=== PATIENT | female | born 1970 | race Caucasian/White ===

== ENCOUNTER → 2020-08-17 17:47 | Outpatient (BNVA) | payer OTHER, SELFPAY | PROVIDERS: Family Provider Family Medicine; PCP Family Medicine; Visit Provider Emergency Medicine | DX: Z20.828 Contact with and (suspected) exposure to other viral communicable diseases (principal); R68.89 Other general symptoms and signs | CPT/HCPCS: 87635 ==

== ENCOUNTER → 2020-10-11 13:44 | Outpatient (BNVA) | payer MEDICAID, SELFPAY | PROVIDERS: Family Provider Family Medicine; PCP Family Medicine; Visit Provider Nurse Practitioner Family | DX: N39.46 Mixed incontinence (principal) | CPT/HCPCS: 81003; 87077; 87086; 87184 ==

== ENCOUNTER → 2020-11-01 14:55 | Outpatient (BNVA) | payer MEDICAID, SELFPAY | PROVIDERS: Family Provider Family Medicine; PCP Family Medicine; Visit Provider Nurse Practitioner Family | DX: N39.46 Mixed incontinence (principal); R82.71 Bacteriuria; N30.90 Cystitis, unspecified without hematuria | CPT/HCPCS: 81003 ==

== ENCOUNTER 2020-11-05 13:47 | Outpatient (CLI) | payer MEDICAID, SELFPAY ==
--- NOTE | 2020-11-05 13:55 | XR_ITS ---
WS: [id number] RIGHT SHOULDER: 3 VIEW(S) TECHNIQUE: Internal and external rotation with Y view. HISTORY: INJURY OF RIGHT SHOULDER, INITIAL ENCOUNTER COMPARISON: None available. No fracture or dislocation or soft tissue abnormality. Glenohumeral and AC joints are unremarkable. XR/XR shoulder RT min 2V* [id number] IMPRESSION: Normal RIGHT shoulder.
== END 2020-11-05 13:48 | disposition home or self-care (01) ==
LOC: RAD 13:50
PROVIDERS: PCP Family Medicine; Visit Provider Registered Nurse
DX: S49.91XA Unspecified injury of right shoulder and upper arm, initial encounter (principal); X58.XXXA Exposure to other specified factors, initial encounter
CPT/HCPCS: 73030

== ENCOUNTER → 2020-11-29 13:39 | Outpatient (BNVA) | payer MEDICAID, SELFPAY | PROVIDERS: PCP Family Medicine; Visit Provider Nurse Practitioner Family | DX: N30.90 Cystitis, unspecified without hematuria (principal); N39.46 Mixed incontinence | CPT/HCPCS: 81003 ==

== ENCOUNTER → 2021-01-16 13:53 | Outpatient (BNVA) | payer MEDICAID, SELFPAY | PROVIDERS: PCP Family Medicine; Visit Provider Urology | DX: N30.90 Cystitis, unspecified without hematuria (principal); N39.46 Mixed incontinence | CPT/HCPCS: 81003 ==

== ENCOUNTER → 2021-01-18 18:42 | Outpatient (BNVA) | payer MEDICAID, SELFPAY | PROVIDERS: PCP Family Medicine; Visit Provider Nurse Practitioner | DX: N89.8 Other specified noninflammatory disorders of vagina (principal); Z68.25 Body mass index [BMI] 25.0-25.9, adult; F17.290 Nicotine dependence, other tobacco product, uncomplicated | CPT/HCPCS: 87070; 87086; 87106; 87205; 87491; 87591; 87661 ==

== ENCOUNTER → 2021-05-14 15:08 | Outpatient (BNVA) | payer MEDICAID, SELFPAY | PROVIDERS: PCP Family Medicine; Visit Provider Nurse Practitioner | DX: N39.0 Urinary tract infection, site not specified (principal) | CPT/HCPCS: 81000 ==

== ENCOUNTER → 2021-06-10 17:23 | Outpatient (BNVA) | payer MEDICAID, SELFPAY | PROVIDERS: PCP Family Medicine | DX: R39.9 Unspecified symptoms and signs involving the genitourinary system (principal); R30.0 Dysuria | CPT/HCPCS: 81000 ==

== ENCOUNTER → 2021-07-26 15:29 | Outpatient (BNVA) | payer MEDICAID, SELFPAY | PROVIDERS: PCP Family Medicine; Visit Provider Obstetrics & Gynecology | DX: Z12.4 Encounter for screening for malignant neoplasm of cervix (principal); E03.9 Hypothyroidism, unspecified; N95.1 Menopausal and female climacteric states | CPT/HCPCS: 87624 ==

== ENCOUNTER → 2021-07-31 10:03 | Outpatient (BNVA) | payer MEDICAID, SELFPAY | PROVIDERS: PCP Family Medicine; Referring Provider Obstetrics & Gynecology; Visit Provider Internal Medicine | DX: R79.89 Other specified abnormal findings of blood chemistry (principal); E03.9 Hypothyroidism, unspecified; E05.90 Thyrotoxicosis, unspecified without thyrotoxic crisis or storm; F17.290 Nicotine dependence, other tobacco product, uncomplicated | CPT/HCPCS: 99204 ==

== ENCOUNTER 2021-08-07 15:56 | Outpatient (CLI) | payer MEDICAID, SELFPAY ==
[2021-08-07 16:50] LABS: Free T4 Free Thyroxine 1.64 ng/dL (0.82-1.77); Thyroid Stimulating Hormone 1.08 uIU/mL (0.27-4.20)
[2021-08-08 14:38] LABS: Thyroglobulin AB 4 IU/mL (< or = 1)
[2021-08-08 16:58] LABS: Thyroid Peroxidase Antobodies 2 IU/mL (<9)
[2021-08-10 18:28] LABS: TSH Receptor Binding Antibody <1.00 IU/L (< OR = 2.00)
== END 2021-08-07 15:57 | disposition home or self-care (01) ==
LOC: LAB 15:58
PROVIDERS: PCP Family Medicine; Visit Provider Internal Medicine
DX: E03.9 Hypothyroidism, unspecified (principal); R79.89 Other specified abnormal findings of blood chemistry
CPT/HCPCS: 36415; 83516; 84439; 84443; 86376; 86800

== ENCOUNTER 2021-10-23 14:26 | Outpatient (CLI) | payer MEDICAID, SELFPAY ==
[2021-10-23 16:05] LABS: Free T4 Free Thyroxine 1.85 ng/dL (0.82-1.77); Thyroid Stimulating Hormone 0.48 uIU/mL (0.27-4.20)
[2021-10-24 14:32] LABS: Thyroid Peroxidase Antobodies 2 IU/mL (<9)
[2021-10-30 18:32] LABS: TSH Receptor Binding Antibody <1.00 IU/L (< OR = 2.00)
== END 2021-10-23 14:27 | disposition home or self-care (01) ==
LOC: LAB 14:39
PROVIDERS: PCP Family Medicine; Visit Provider Internal Medicine
DX: E05.90 Thyrotoxicosis, unspecified without thyrotoxic crisis or storm (principal); R79.89 Other specified abnormal findings of blood chemistry
CPT/HCPCS: 36415; 83516; 84439; 84443; 86376

== ENCOUNTER 2021-12-27 15:39 | Outpatient (CLI) | payer MEDICAID, SELFPAY ==
[2021-12-27 16:17] LABS: Basophils # 0.1 10^3/uL (0.0-0.1); Basophils % 0.7 %; Hematocrit 39.2 % (37.0-47.0); Lymphocytes # 2.5 10^3/uL (0.8-4.8); Lymphocytes % 30.5 %; Mean Corpuscular HGB Conc 33.2 g/dL (30.0-36.0); Mean Corpuscular Hemoglobin 28.8 pg (28.0-34.0); Mean Corpuscular Volume 86.9 fl (81-99); Mean Platelet Volume 9.8 fL (7.4-10.4); Monocytes # 0.5 10^3/uL (0.2-0.9); Monocytes % 5.6 %; Neutrophils # 5.15 10^3/uL (1.8-7.7); Nucleated Red Blood Cells % 0 %; Platelet Count 490 10^3/cmm (130-400); Red Blood Count 4.51 10^6/uL (4.1-5.3); Red Cell Distribution Width 12.4 % (12.1-15.1); White Blood Count 8.2 10^3/uL (4.0-10.0)
[2021-12-27 16:50] LABS: Alanine Aminotransferase 13 U/L (0-33); Albumin Level 4.3 g/dL (3.5-5.2); Alkaline Phosphatase 63 IU/L (35-105); Anion Gap 15.6 (5-19); Aspartate Amino Transferase 18 U/L (0-32); Blood Urea Nitrogen 13 mg/dL (6-20); Calcium 9.3 mg/dL (8.5-10.5); Carbon Dioxide 26 mmol/L (22-29); Chloride 101 mmol/L (98-107); Chol HDL Ratio 2.91 mg/dL (0.0-4.40); Cholesterol 236 mg/dL (0-200); Globulin 3.2 g/dL (1.3-4.6); Glomerular Filtration Rate 52.8 mL/min (90-130); Glucose 102 mg/dL (65-115); HDL Cholesterol 81 mg/dL (60-100); LDL Cholesterol Calculated 137 mg/dL (50-129); LDL HDL Ratio 1.69 RATIO (0.00-3.22); Osmolality Calculated 288 mOsm/kg (285-295); Potassium 3.6 mmol/L (3.5-5.1); Sodium 139 mmol/L (136-145); Thyroid Stimulating Hormone 0.91 uIU/mL (0.27-4.20); Total Bilirubin 0.4 mg/dL (0.15-1.2); Total Protein 7.5 g/dL (6.6-8.7); Triglycerides 90 mg/dL (0-150)
[2021-12-27 17:25] LABS: Free T4 Free Thyroxine 1.71 ng/dL (0.82-1.77); T3 Free 2.3 PG/ML (2.0-4.4)
== END 2021-12-27 15:40 | disposition home or self-care (01) ==
PROVIDERS: PCP Family Medicine; Visit Provider Family Medicine
DX: E78.2 Mixed hyperlipidemia (principal); E03.4 Atrophy of thyroid (acquired); E03.9 Hypothyroidism, unspecified
CPT/HCPCS: 36415; 80053; 80061; 84439; 84443; 84481; 85025

== ENCOUNTER 2022-01-14 12:48 | Outpatient (CLI) | payer MEDICAID, SELFPAY ==
--- NOTE | 2022-01-14 13:04 | MM_ITS ---
WS: [id number] BILATERAL 3D TOMOSYNTHESIS DIGITAL SCREENING MAMMOGRAPHY WITH CAD CLINICAL INFORMATION: SCREENING HISTORY: Screening mammogram. Bilateral breast soreness. COMPARISON: November 03, 2016 TECHNIQUE: Bilateral CC and MLO views. FINDINGS: Breast implants Mammographically intact. The breasts are composed of heterogeneous fibroglandular density tissue, which can limit the detectio n of small underlying mass lesions. A few tiny incidental punctate calcifications. Nodular bilateral breast cysts appear improved compared to previous. A few small stable ovoid nodules upper outer LEFT breast. No suspicious mass, asymmetry, calcifications, or architectural distortion. No evidence of ma lignancy. MM/[place] [id number] IMPRESSION: BI-RADS: 2-Benign FOLLOW UP: 1 Year Follow-up Recommend return to annual screening mammography.
== END 2022-01-14 12:49 | disposition home or self-care (01) ==
PROVIDERS: PCP Family Medicine; Visit Provider Family Medicine
DX: Z12.31 Encounter for screening mammogram for malignant neoplasm of breast (principal)
CPT/HCPCS: 77063; 77067

== ENCOUNTER → 2022-03-12 14:12 | Outpatient (BNVA) | payer MEDICAID, SELFPAY | PROVIDERS: PCP Family Medicine; Visit Provider Nurse Practitioner Family | DX: N30.90 Cystitis, unspecified without hematuria (principal); N39.46 Mixed incontinence | CPT/HCPCS: 51798; 99213 ==

== ENCOUNTER 2022-03-12 15:11 | Outpatient (CLI) | payer MEDICAID, SELFPAY ==
[2022-03-12 15:34] LABS: Basophils % 0.5 %; Eosinophils % 0.2 %; Hematocrit 35.7 % (37.0-47.0); Hemoglobin 11.9 g/dL (11.5-15.3); Lymphocytes # 2.9 10^3/uL (0.8-4.8); Lymphocytes % 34.7 %; Mean Corpuscular HGB Conc 33.3 g/dL (30.0-36.0); Mean Corpuscular Hemoglobin 29.7 pg (28.0-34.0); Mean Platelet Volume 10.5 fL (7.4-10.4); Monocytes # 0.7 10^3/uL (0.2-0.9); Monocytes % 8.5 %; Neutrophils # 4.58 10^3/uL (1.8-7.7); Neutrophils % 55.9 %; Nucleated Red Blood Cells % 0 %; Platelet Count 371 10^3/cmm (130-400); Red Blood Count 4.01 10^6/uL (4.1-5.3); Red Cell Distribution Width 14.4 % (12.1-15.1); White Blood Count 8.2 10^3/uL (4.0-10.0)
[2022-03-12 16:03] LABS: Alanine Aminotransferase 17 U/L (0-33); Albumin Level 4.1 g/dL (3.5-5.2); Alkaline Phosphatase 51 IU/L (35-105); Blood Urea Nitrogen 21 mg/dL (6-20); Calcium 8.3 mg/dL (8.5-10.5); Carbon Dioxide 26 mmol/L (22-29); Chloride 103 mmol/L (98-107); Globulin 2.5 g/dL (1.3-4.6); Glomerular Filtration Rate 76.2 mL/min (90-130); Glucose 85 mg/dL (65-115); Iron 25 ug/dL (37-145); Osmolality Calculated 286 mOsm/kg (285-295); Sodium 137 mmol/L (136-145); Total Bilirubin 0.2 mg/dL (0.15-1.2); Total Protein 6.6 g/dL (6.6-8.7)
[2022-03-12 16:16] LABS: Anion Gap 12.3 (5-19); Aspartate Amino Transferase 20 U/L (0-32); Potassium 4.3 mmol/L (3.5-5.1)
== END 2022-03-12 15:12 | disposition home or self-care (01) ==
LOC: LAB 15:19
PROVIDERS: PCP Family Medicine; Visit Provider Family Medicine
DX: N92.0 Excessive and frequent menstruation with regular cycle (principal)
CPT/HCPCS: 80053; 81003; 83540; 84443; 85025

== ENCOUNTER 2022-06-26 14:56 | Emergency (ER) | payer MEDICAID, SELFPAY ==
[2022-06-26 15:08] VITALS: BP 109/74; PULSE 92; RESP 16; TEMP 36.3; O2SAT 98
--- NOTE | 2022-06-26 15:39 | W.ED.GENADLT ---
HPI - General Adult General: Chief complaint: Abdominal Pain Stated complaint: Cramping, Took a home colon cancer test Time Seen by Provider: 06/26/22 15:38 History of Present Illness: Patient is a 51-year-old female with history of chronic lower abdominal pain presenting to the emergency room with concerns of increasing frequency of cramps as well as positive colon cancer screening test. Patient tells me that recently she took a colon cancer treated testing was positive. Patient tells me that she is distraught that her mother recently from colon cancer. Patient would like to see if she has colon cancer today. Patient reports that she has had been having lower abdominal cramps for about 2 years now but has been worsening in the last few month. Patient also has been taking iron but reports that her stool is dark. Patient denies any hematochezia, or any urinary complaints. Patient denies any new vaginal complaints, new vaginal discharge or bleeding. Patient is currently still on her period. Onset:acute on chronic Duration:ongoing Location:home Severity:moderate Associated symptoms: Deny chest pain, dyspnea, nausea, rash, palpitations or vomiting Review of Systems Const: Denies: fever(s) or chills Eyes: Denies: change in vision ENMT: Denies: mouth pain Card: Denies: chest pain or palpitations Resp: Denies: dyspnea or non-productive cough GI: Reports: abdominal pain (+lower abdominal cramps); Denies: nausea, vomiting or diarrhea : Denies: dysuria Musc: Denies: extremity pain Skin/Breast: Denies: rash or new lesions Neuro: Denies: weakness in extremities Psych: Reports: other (Normal mood) Lucas/Lymph: Denies: easy bruising PFSH ED PFSH: Medical History Anxiety Bipolar disorder Cystitis Depression Hypothyroidism Mixed stress and urge urinary incontinence Surgical History H/O breast augmentation H/O dilation and curettage H/O hand surgery H/O oral surgery wisdom teeth extraction H/O removal of cyst Hx of tonsillectomy Status post creation of urethral sling by suprapubic approach Family History Father Hypertension Dementia Clotting disorder Hyperlipidemia Heart disease Mother Diabetes Stroke Grandmother Thyroid condition maternal Denies family history of Colon cancer Ovarian cancer Breast cancer Anesthesia complication Bleeding disorder Uterine cancer Social History Smoking and tobacco status: current every day smoker (VAPE) e-cigarettes Quit status (tobacco): not considering quitting Smoking risk assessment/counseling performed?: Yes Alcohol intake: never Desire information about alcohol rehabilitation?: No Counseling given: No Desire information about substance/drug rehabilitation?: No Counseling given: No Adopted: No Caregiver/support person: No Lives independently: Yes Household members: none Housing: Apartment Marital status: Single Number of children: 2 Highest education level completed: Some College, No Degree service: No Current occupational status: disabled Current occupational exposures/hazards: No Pets and animals: Yes History of recent travel: No Sexually active: No Current gender identity: Female Yoana/Latter-Day: Yarsani Special yoana needs: No Agree to transfusion: Yes Physical Exam Const: COMMON NORMALS: alert HENMT: COMMON NORMALS: atraumatic HEAD & SCALP: atraumatic MOUTH: moist mucous membranes not abnormal Eye: COMMON NORMALS: EOMs intact bilaterally and conjunctivae normal CONJUNCTIVA: Yes conjunctivae normal Neck/C-Spine: COMMON NORMALS: full ROM and supple Resp: COMMON NORMALS: normal respiratory effort and clear to auscultation bilaterally AUSCULTATION: clear to auscultation bilaterally Cardio: COMMON NORMALS: regular rate RATE: regular rate GI: COMMON NORMALS: Soft to palpation and non-tender PALPATION: Yes Soft to palpation OTHER: +mild suprapubic focal TTP. NO guarding rebound, guarding, rigidity. No CVA tenderness to percussion. Neg Orellana/Neg McBurney's point tenderness, no suprabupic tenderness to palpation. Extremity: COMMON NORMALS: full ROM Neuro: SENSORIUM/ORIENTATION: Yes alert MOTOR EXAM: No Abnormal motor strength present and Other motor observations present (no focal motor deficits) Psych: COMMON NORMALS: speech normal SPEECH: Yes normal speech MOOD & AFFECT: Yes euthymic mood Course Vital Signs: Vital signs: Vital Signs Temperature 97.3 F L 06/26/22 15:08 Pulse Rate 70 06/26/22 17:00 Respiratory Rate 14 06/26/22 18:16 Blood Pressure 131/77 06/26/22 17:00 Pulse Oximetry 96 06/26/22 18:16 Oxygen Delivery Me thod 06/26/22 17:00 MDM - General Adult Medical Decision Making Patient is a 51-year-old female with history of chronic lower abdominal pain presenting to the emergency room with concerns of increasing frequency of cramps as well as positive colon cancer screening test. On exam, patient has mild suprapubic tenderness to palpation. Rest of exam is unremarkable. Patient is hemodynamically stable. White count 12.6. Lab work-up including UA negative for any acute finding. CT abdomen pelvis showed ill-defined leiomyoma and mass. No other focal findings. Incidental findings of leomyoma discussed extensively with patient. Patient received a copy of the CT report with the documented findings. Patient is instructed to follow up urgently with specialists. I have given patient follow up with our high risk case manager to be seen by our outpatient by Dr. James for outpatient colonoscopy. Patient aware of a call from our high risk case manager to schedule for appointment(s) and verbalizes understanding of the importance of following up. Rx tylenol PRN abd pain, maalox/pepcid PRN dyspepsia, and zofran PRN nausea/vomiting Disposition: Discharge. Patient counseled regarding diagnostic impression, treatment plan. Patient given ED strict return precautions to return for continuation, worsening, or development of new symptoms. Instructed to f/u w/ PCP and Dr. James regarding symptoms today. Patient verbalized understanding. Lab Data : 06/26/22 16:10 06/26/22 16:10 Radiology Impressions Abdomen/Pelvis CT 06/26/22 16:04 IMPRESSION: 1. No acute abnormality in the abdomen or pelvis. 2. Scattered diverticula in the sigmoid colon. No evidence for diverticulitis. 3. Incidental/nonacute findings are listed in the report. Laboratory Results WBC 12.6 10^3/uL (4.0-10.0) H 06/26/22 16:10 RBC 4.92 10^6/uL (4.1-5.3) 06/26/22 16:10 Hgb 14.9 g/dL (11.5-15.3) 06/26/22 16:10 Hct 44.4 % (37.0-47.0) 06/26/22 16:10 MCV 90.2 fl (81-99) 06/26/22 16:10 MCH 30.3 pg (28.0-34.0) 06/26/22 16:10 MCHC 33.6 g/dL (30.0-36.0) 06/26/22 16:10 RDW 14.4 % (12.1-15.1) 06/26/22 16:10 Plt Count 362 10^3/cmm (130-400) 06/26/22 16:10 MPV 10.4 fL (7.4-10.4) 06/26/22 16:10 Neut % (Auto) 77.2 % 06/26/22 16:10 Lymph % (Auto) 16.7 % 06/26/22 16:10 [place] % (Auto) 5.4 % 06/26/22 16:10 Eos % (Auto) 0.0 % 06/26/22 16:10 Baso % (Auto) 0.3 % 06/26/22 16:10 Neut # (Auto) 9.74 10^3/uL (1.8-7.7) H 06/26/22 16:10 Lymph # (Auto) 2.1 10^3/uL (0.8-4.8) 06/26/22 16:10 [place] # (Auto) 0.7 10^3/uL (0.2-0.9) 06/26/22 16:10 Eos # (Auto) 0.0 10^3/uL (0.0-0.8) 06/26/22 16:10 Baso # (Auto) 0.0 10^3/uL (0.0-0.1) 06/26/22 16:10 Nucleated RBC % (auto) 0 % 06/26/22 16:10 Nucleated RBCs # 0.0 /100WBC 06/26/22 16:10 Sodium 137 mmol/L (136-145) 06/26/22 16:10 Potassium 3.9 mmol/L (3.5-5.1) 06/26/22 16:10 Chloride 100 mmol/L (98-107) 06/26/22 16:10 Carbon Dioxide 25 mmol/L (22-29) 06/26/22 16:10 Anion Gap 15.9 (5-19) 06/26/22 16:10 BUN 14 mg/dL (6-20) 06/26/22 16:10 Creatinine 0.9 mg/dL (0.5-0.9) 06/26/22 16:10 GFR Calculation 66.5 mL/min (90-130) L 06/26/22 16:10 Glucose 99 mg/dL (65-115) 06/26/22 16:10 Calculated Osmolality 285 mOsm/kg (285-295) 06/26/22 16:10 Calcium 9.2 mg/dL (8.5-10.5) 06/26/22 16:10 Total Bilirubin 0.3 mg/dL (0.15-1.2) 06/26/22 16:10 AST 16 U/L (0-32) 06/26/22 16:10 ALT 15 U/L (0-33) 06/26/22 16:10 Alkaline Phosphatase 57 U/L (35-105) 06/26/22 16:10 Total Protein 6.8 g/dL (6.6-8.7) 06/26/22 16:10 Albumin 4.3 g/dL (3.5-5.2) 06/26/22 16:10 Globulin 2.5 g/dL (1.3-4.6) 06/26/22 16:10 Lipase 24 U/L (13-60) 06/26/22 16:10 Urine Color Yellow (Yellow) 06/26/22 16:15 Urine Appearance Clear (CLEAR) 06/26/22 16:15 Urine pH 6.0 (5-7) 06/26/22 16:15 Ur Specific [place] 1.010 (1.005-1.030) 06/26/22 16:15 Urine Protein Negative (Negative) 06/26/22 16:15 Urine Glucose (UA) Negative (Normal) 06/26/22 16:15 Urine Ketones Negative (Negative) 06/26/22 16:15 Urine Blood Negative (Negative) 06/26/22 16:15 Urine Nitrate Negative 06/26/22 16:15 Urine Bilirubin Negative (Negative) 06/26/22 16:15 Urine Urobilinogen 0.2 mg/dL (Negative) 06/26/22 16:15 Ur Leukocyte Esterase Negative (Negative) 06/26/22 16:15 Imaging Data Other Imaging: Radiologist's impression: [address] [address] [address] Scan Report Signed Patient: Britta Rothman Unit #: [id number] : 1970 Age/Sex: 51 / F ADM Date: 06/26/22 Loc: ER Room/Bed: Attending Dr: Ordering Provider/Ordering MD: Kalie Hunter MD Date of Service: 06/26/22 Procedure(s): CT abdomen pelvis w con* [id number] Accession Number(s): [id number] Report Number: [id number] PROCEDURE INFORMATION: Exam: CT Abdomen And Pelvis With Contrast Exam date and time: 06/26/2022 4:47 PM Age: 51 years old Clinical indication: Nausea and other: Abdomen cramp; Prior surgery; Surgery date: 6+ months; Surgery type: Urethral sling, d and c, breast augmentation; Additional info: Abd pain TECHNIQUE: Imaging protocol: Computed tomography of the abdomen and pelvis with contrast. Sagittal and coronal reformatted images were created and reviewed. Radiation optimization: All CT scans at this facility use at least one of these dose optimization techniques: automated exposure control; mA and/or kV adjustment per patient size (includes targeted exams where dose is matched to clinical indication); or iterative reconstruction. Contrast material: OMNIPAQUE 350; Contrast volume: 80 ml; Contrast route: INTRAVENOUS (IV);? COMPARISON: US pelvic with transvaginal 11/04/2018 9:53 AM RADIATION DOSE METRICS: Total DLP (mGy-cm): 457.71 FINDINGS: Lungs: Visualized lungs are clear. Pleural spaces: No pleural effusion. Heart: Visualized portions of the heart are unremarkable. Liver: The liver is unremarkable. Gallbladder and bile ducts: The gallbladder is unremarkable. No biliary ductal dilatation. Pancreas: The pancreas is unremarkable. No pancreatic ductal dilatation. Spleen: The spleen is unremarkable. Adrenal glands: The right and left adrenal glands are unremarkable. Kidneys and ureters: The right and left kidneys are unremarkable. The right and left ureters are unremarkable. Stomach and bowel: Scattered diverticula in the sigmoid colon. No evidence for diverticulitis. Appendix: The appendix is visualized and is unremarkable. No findings to suggest acute appendicitis. Intraperitoneal space: No free intraperitoneal air. No ascites. No loculated fluid collections to suggest an abscess. Vasculature: Mild atherosclerotic changes in the visualized arteries. No evidence for aortic aneurysm or aortic dissection. Hepatic veins, portal veins, splenic vein, and SMV are patent. Lymph nodes: No lymphadenopathy. Urinary bladder: The bladder is unremarkable. Reproductive: Ill-defined leiomyoma in the anterior myometrium measuring 2.0 x 2.4 cm (series 3, image 66). This is overall stable in size. Dominant follicle in the right ovary measuring 1.4 cm. The left ovary is unremarkable. Bones/joints: Degenerative changes in the spine and hips. Mild spinal canal stenosis at L3-L4 and L4-L5. Multilevel foraminal stenosis of varying severity in the visualized spine. Soft tissues: Bilateral breast implants are partially visualized. Small fat-containing umbilical hernia. No evidence for strangulation. CT/CT abdomen pelvis w con* [id number] IMPRESSION: 1. No acute abnormality in the abdomen or pelvis. 2. Scattered diverticula in the sigmoid colon. No evidence for diverticulitis. 3. Incidental/nonacute findings are listed in the report. ? Dictated By: Eri Mortensen MD Signed By: Eri Mortensen MD Signed Date/Time: 06/26/221806 DD/ 164 Discharge Plan Discharge Patient Disposition: Home Clinical Impression: Abdominal pain Condition: Stable Prescriptions: New acetaminophen 500 mg tablet 500 mg PO Q6H PRN (Reason: pain) 5 Days Qty: 20 0RF Pepcid 20 mg tablet 20 mg PO BID PRN (Reason: abdominal pain) 10 Days Qty: 20 0RF Maalox Advanced 1,000-60 mg tablet,chewable 1 tab PO TID PRN (Reason: abdominal pain) 7 Days Qty: 21 0RF Biofreeze (menthol) 5 % gel 1 ea topical BID PRN (Reason: pain) 10 Days Qty: 1 0RF No Action calcium carbonate-vitamin D3 [Calcium 600 with Vitamin D3] 600 mg(1,500mg) -500 unit capsule 1 cap PO DAILY biotin 5 mg capsule 5 mg PO DAILY alprazolam 3 mg tablet extended release 24 hr 3 mg PO DAILY levothyroxine 100 mcg capsule 88 mcg PO DAILY pantoprazole [Protonix] 40 mg tablet,delayed release (DR/EC) 40 mg PO BID alprazolam 2 mg tablet 2 mg PO TID Rexulti 4 mg tablet 4 mg PO DAILY lamotrigine 25 mg tablet 25 mg PO DAILY Viibryd 10 mg tablet 10 mg PO DAILY Rx Instructions: must administer with a meal/food vitamin B complex Capsule 1 cap PO DAILY selenium 50 mcg tablet 50 mcg PO DAILY dextroamphetamine-amphetamine 20 mg tablet 20 mg PO BID albuterol sulfate 90 mcg/actuation Hfa Aerosol Inhaler 2 puff INHALATION Q6H PRN (Reason: Shortness Of Breath Or Wheezing) oxybutynin chloride 10 mg tablet extended release 24hr 10 mg PO DAILY Discharge Orders: Discharge ED (Routine); Ordered 06/26/22 Ordered By: Kalie Hunter Referrals: Alma Banda DO [Primary Care Provider] - Discharge Diet: Advance as tolerated Discharge Activity: Increase activity as tolerated Patient Instructions: Abdominal Pain (ED) Activity Restrictions/Additional Instructions: Please come back if you have any worsening abdominal pain, fever or chills, nausea or vomiting, diarrhea, blood in the stool, inability hold down liquid or solids, or any new concerning complaints. Our high risk case manager will have you follow-up with Dr. James for a colonoscopy in the next few days. You would be expected to have a phone call with our high risk case manager who will put you on the schedule. You can expect a call from us in the next 2-3 days. If you don't hear from us, call us back in the emergency room at [phone]. Here's a copy of your CT report. Please follow up with a blending tank helper. [address] [address] [address] Scan Report Signed Patient: Britta Rothman Unit #: [id number] : 1970 Age/Sex: 51 / F ADM Date: 06/26/22 Loc: ER Room/Bed: Attending Dr: Ordering Provider/Ordering MD: Kalie Hunter MD Date of Service: 06/26/22 Procedure(s): CT abdomen pelvis w con* [id number] Accession Number(s): [id number] Report Number: [id number] PROCEDURE INFORMATION: Exam: CT Abdomen And Pelvis With Contrast Exam date and time: 06/26/2022 4:47 PM Age: 51 years old Clinical indication: Nausea and other: Abdomen cramp; Prior surgery; Surgery date: 6+ months; Surgery type: Urethral sling, d and c, breast augmentation; Additional info: Abd pain TECHNIQUE: Imaging protocol: Computed tomography of the abdomen and pelvis with contrast. Sagittal and coronal reformatted images were created and reviewed. Radiation optimization: All CT scans at this facility use at least one of these dose optimization techniques: automated exposure control; mA and/or kV adjustment per patient size (includes targeted exams where dose is matched to clinical indication); or iterative reconstruction. Contrast material: OMNIPAQUE 350; Contrast volume: 80 ml; Contrast route: INTRAVENOUS (IV);? COMPARISON: US pelvic with transvaginal 11/04/2018 9:53 AM RADIATION DOSE METRICS: Total DLP (mGy-cm): 457.71 FINDINGS: Lungs: Visualized lungs are clear. Pleural spaces: No pleural effusion. Heart: Visualized portions of the heart are unremarkable. Liver: The liver is unremarkable. Gallbladder and bile ducts: The gallbladder is unremarkable. No biliary ductal dilatation. Pancreas: The pancreas is unremarkable. No pancreatic ductal dilatation. Spleen: The spleen is unremarkable. Adrenal glands: The right and left adrenal glands are unremarkable. Kidneys and ureters: The right and left kidneys are unremarkable. The right and left ureters are unremarkable. Stomach and bowel: Scattered diverticula in the sigmoid colon. No evidence for diverticulitis. Appendix: The appendix is visualized and is unremarkable. No findings to suggest acute appendicitis. Intraperitoneal space: No free intraperitoneal air. No ascites. No loculated fluid collections to suggest an abscess. Vasculature: Mild atherosclerotic changes in the visualized arteries. No evidence for aortic aneurysm or aortic dissection. Hepatic veins, portal veins, splenic vein, and SMV are patent. Lymph nodes: No lymphadenopathy. Urinary bladder: The bladder is unremarkable. Reproductive: Ill-defined leiomyoma in the anterior myometrium measuring 2.0 x 2.4 cm (series 3, image 66). This is overall stable in size. Dominant follicle in the right ovary measuring 1.4 cm. The left ovary is unremarkable. Bones/joints: Degenerative changes in the spine and hips. Mild spinal canal stenosis at L3-L4 and L4-L5. Multilevel foraminal stenosis of varying severity in the visualized spine. Soft tissues: Bilateral breast implants are partially visualized. Small fat-containing umbilical hernia. No evidence for strangulation. CT/CT abdomen pelvis w con* [id number] IMPRESSION: 1. No acute abnormality in the abdomen or pelvis. 2. Scattered diverticula in the sigmoid colon. No evidence for diverticulitis. 3. Incidental/nonacute findings are listed in the report. ? Dictated By: Eri Mortensen MD Signed By: Eri Mortensen MD Signed Date/Time: 06/26/22 180 DD/ 1647 Coding Level of Care Code ED Lead Operator for Chg Fwd Exam Comprehensive
--- NOTE | 2022-06-26 16:04 | CTR_ITS ---
PROCEDURE INFORMATION: Exam: CT Abdomen And Pelvis With Contrast Exam date and time: 06/26/2022 4:47 PM Age: 51 years old Clinical indication: Nausea and other: Abdomen cramp; Prior surgery; Surgery date: 6+ months; Surgery type: Urethral sling, d and c, breast augmentation; Additional info: Abd pain TECHNIQUE: Imaging protocol: Computed tomography of the abdomen and pelvis with contrast. Sagittal and coronal reformatted images were created and reviewed. Radiation optimization: All CT scans at this facility use at least one of these dose optimization techniques: automated exposure control; mA and/or kV adjustment per patient size (includes targeted exams where dose is matched to clinical indication); or iterative reconstruction. Contrast material: OMNIPAQUE 350; Contrast volume: 80 ml; Contrast route: INTRAVENOUS (IV); COMPARISON: US pelvic with transvaginal 11/04/2018 9:53 AM RADIATION DOSE METRICS: Total DLP (mGy-cm): 457.71 FINDINGS: Lungs: Visualized lungs are clear. Pleural spaces: No pleural effusion. Heart: Visualized portions of the heart are unremarkable. Liver: The liver is unremarkable. Gallbladder and bile ducts: The gallbladder is unremarkable. No biliary ductal dilatation. Pancreas: The pancreas is unremarkable. No pancreatic ductal dilatation. Spleen: The spleen is unremarkable. Adrenal glands: The right and left adrenal glands are unremarkable. Kidneys and ureters: The right and left kidneys are unremarkable. The right and left ureters are unremarkable. Stomach and bowel: Scattered diverticula in the sigmoid colon. No evidence for diverticulitis. Appendix: The appendix is visualized and is unremarkable. No findings to suggest acute appendicitis. Intraperitoneal space: No free intraperitoneal air. No ascites. No loculated fluid collections to suggest an abscess. Vasculature: Mild atherosclerotic changes in the visualized arteries. No evidence for aortic aneurysm or aortic dissection. Hepatic veins, portal veins, splenic vein, and SMV are patent. Lymph nodes: No lymphadenopathy. Urinary bladder: The bladder is unremarkable. Reproductive: Ill-defined leiomyoma in the anterior myometrium measuring 2.0 x 2.4 cm (series 3, image 66). This is overall stable in size. Dominant follicle in the right ovary measuring 1.4 cm. The left ovary is unremarkable. Bones/joints: Degenerative changes in the spine and hips. Mild spinal canal stenosis at L3-L4 and L4-L5. Multilevel foraminal stenosis of varying severity in the visualized spine. Soft tissues: Bilateral breast implants are partially visualized. Small fat-containing umbilical hernia. No evidence for strangulation. CT/CT abdomen pelvis w con* [id number] IMPRESSION: 1. No acute abnormality in the abdomen or pelvis. 2. Scattered diverticula in the sigmoid colon. No evidence for diverticulitis. 3. Incidental/nonacute findings are listed in the report.
[2022-06-26 16:27] LABS: Basophils % 0.3 %; Hematocrit 44.4 % (37.0-47.0); Hemoglobin 14.9 g/dL (11.5-15.3); Lymphocytes # 2.1 10^3/uL (0.8-4.8); Lymphocytes % 16.7 %; Mean Corpuscular HGB Conc 33.6 g/dL (30.0-36.0); Mean Corpuscular Hemoglobin 30.3 pg (28.0-34.0); Mean Corpuscular Volume 90.2 fl (81-99); Mean Platelet Volume 10.4 fL (7.4-10.4); Monocytes # 0.7 10^3/uL (0.2-0.9); Monocytes % 5.4 %; Neutrophils # 9.74 10^3/uL (1.8-7.7); Neutrophils % 77.2 %; Nucleated Red Blood Cells % 0 %; Platelet Count 362 10^3/cmm (130-400); Red Blood Count 4.92 10^6/uL (4.1-5.3); Red Cell Distribution Width 14.4 % (12.1-15.1); White Blood Count 12.6 10^3/uL (4.0-10.0)
[2022-06-26 16:39] VITALS: RESP 14; O2SAT 96
[2022-06-26] MEDS: famotidine 20 mg/2 mL INJ 40 MG IVP (16:39)
[2022-06-26] MEDS: morphine 4 mg/mL SDV 1 mL 2 MG IVP ×2 (16:39→18:16)
[2022-06-26] MEDS: lidocaine 2% viscous 15 ML, aluminum-mag hydrox-simethicon 30 ML, sucralfate oral liq 1 GM PO (16:39)
[2022-06-26] MEDS: sodium chloride 0.9% 1,000 ML 999 ML IV (16:39)
[2022-06-26 16:47] LABS: Alanine Aminotransferase 15 U/L (0-33); Albumin Level 4.3 g/dL (3.5-5.2); Alkaline Phosphatase 57 U/L (35-105); Blood Urea Nitrogen 14 mg/dL (6-20); Calcium 9.2 mg/dL (8.5-10.5); Carbon Dioxide 25 mmol/L (22-29); Chloride 100 mmol/L (98-107); Globulin 2.5 g/dL (1.3-4.6); Glomerular Filtration Rate 66.5 mL/min (90-130); Glucose 99 mg/dL (65-115); Lipase 24 U/L (13-60); Osmolality Calculated 285 mOsm/kg (285-295); Sodium 137 mmol/L (136-145); Total Bilirubin 0.3 mg/dL (0.15-1.2); Total Protein 6.8 g/dL (6.6-8.7)
[2022-06-26] MEDS: iohexol 350 mg/mL 100 mL Btl IV (16:51)
[2022-06-26 16:54] LABS: Anion Gap 15.9 (5-19); Aspartate Amino Transferase 16 U/L (0-32); Potassium 3.9 mmol/L (3.5-5.1)
[2022-06-26 16:57] LABS: Add Urine Microscopic? NO; Charge for UA Resulting for Rev
[2022-06-26 17:00] VITALS: BP 131/77; PULSE 70; RESP 14; O2SAT 98
[2022-06-26 17:15] LABS: Bilirubin Urine Negative (Negative); Blood Urine Negative (Negative); Glucose Urine UA Negative (Normal); Ketones Urine Negative (Negative); Leukocyte Esterase Urine Negative (Negative); Nitrate Urine Negative; Protein Urine Negative (Negative); Urine Appearance Clear (CLEAR); Urine Color Yellow (Yellow); Urobilinogen Urine 0.2 mg/dL (Negative)
[2022-06-26 18:00] VITALS: BP 115/70; PULSE 66; RESP 15; O2SAT 99
[2022-06-26] MEDS: ketorolac 30 mg/mL INJ IVP (18:15)
[2022-06-26 18:16] VITALS: RESP 14; O2SAT 96
== END 2022-06-26 18:36 | disposition home or self-care (01) ==
PROVIDERS: Emergency Provider Emergency Medicine; PCP Family Medicine
DX: R10.9 Unspecified abdominal pain (principal); G89.29 Other chronic pain; D25.9 Leiomyoma of uterus, unspecified; K57.30 Diverticulosis of large intestine without perforation or abscess without bleeding
CPT/HCPCS: 74177; 80053; 81003; 83690; 85025; 96361; 96374; 96375; 96376; 99285; J1885; J2270; J3490; J7030; Q9967

== ENCOUNTER 2022-07-21 08:02 | Day surgery (SDC) | payer MEDICAID, SELFPAY ==
[2022-07-17 12:07] VITALS: BMI 24.1
--- NOTE | 2022-07-21 07:44 | W.PM.OPSFHP ---
Same Day Surgery H&P Indication for Procedure/HPI DATE OF PROCEDURE: July 21, 2022 CHIEF COMPLAINT/INDICATIONFOR SURGICAL PROCEDURE: PREOP DIAGNOSIS: PLANNED PROCEDURE: Operation Date: 07/21/22 09:30 Proposed Procedures p EGD/colonoscopy [id number],Z80.0(Not Applicable) - Paulino Snow MD s Colonoscopy(Not Applicable) - Paulino Snow MD Medications/Allergies* Home Medications Medication Instructions Recorded Confirmed Type alprazolam 2 mg tablet 2 mg PO TID PRN Anxiety 08/17/20 07/17/22 History brexpiprazole 4 mg tablet (Rexulti) 4 mg PO DAILY 08/17/20 07/17/22 History pantoprazole 40 mg tablet,delayed 40 mg PO BID 08/17/20 07/17/22 History release (Protonix) biotin 5 mg capsule 5 mg PO DAILY 10/11/20 07/17/22 History calcium carbonate 600 mg-vitamin 1 cap PO DAILY 10/11/20 07/17/22 History D3 12.5 mcg (500 unit) capsule (Calcium 600 with Vitamin D3) alprazolam 3 mg tablet,extended 3 mg PO DAILY 01/16/21 07/17/22 History release 24 hr levothyroxine 100 mcg capsule 100 mcg PO DAILY 07/26/21 07/17/22 History vilazodone 10 mg tablet (Viibryd) 40 mg PO DAILY 07/26/21 07/17/22 History selenium 50 mcg tablet 200 mcg PO DAILY 03/12/22 07/17/22 History vitamin B complex 1 cap PO DAILY 03/12/22 07/17/22 History albuterol sulfate 90 mcg/actuation 2 puff inhalation Q6H PRN 06/26/22 07/17/22 History aerosol inhaler Shortness Of Breath Or Wheezing dextroamphetamine-amphetamine 20 20 mg PO BID 06/26/22 07/17/22 History mg tablet (Adderall) oxybutynin chloride 10 mg 10 mg PO DAILY 06/26/22 07/17/22 History tablet,extended release 24 hr ferrous sulfate 325 mg (65 mg 325 mg PO DAILY 07/17/22 07/17/22 History iron) tablet (Iron (ferrous sulfate)) lamotrigine 200 mg tablet 200 mg PO DAILY 07/17/22 07/17/22 History Allergies/Adverse Reactions Allergy/AdvReac Type Severity Reaction Status Date / Time bupropion [From Wellbutrin] Allergy Severe rash Verified 07/17/22 12:01 lorazepam [From Ativan] Allergy Severe mood Verified 07/17/22 12:01 swings, angry trazodone Allergy Severe vomiting Verified 07/17/22 12:01 Pertinent History/Comorbid Conditions* Medical History (Updated 07/08/22 @ 14:36 by Paulino Snow MD) Anxiety Bipolar disorder Cystitis Depression Hypothyroidism Mixed stress and urge urinary incontinence Surgical History (Updated 08/04/21 @ 19:56 by Maren Wheat MD) H/O breast augmentation H/O dilation and curettage H/O hand surgery H/O oral surgery wisdom teeth extraction H/O removal of cyst Hx of tonsillectomy Status post creation of urethral sling by suprapubic approach Family History (Updated 07/26/21 @ 14:55 by Taryn Colon RN) Diabetes Mother Clotting disorder Father Dementia Father Heart disease Father Hyperlipidemia Father Hypertension Father Thyroid condition Grandmother maternal Stroke Mother Denies family history of Colon cancer Ovarian cancer Breast cancer Anesthesia complication Bleeding disorder Uterine cancer Social History Smoking and tobacco status: current every day smoker e-cigarettes Quit status (tobacco): not considering quitting Smoking risk assessment/counseling performed?: Yes Alcohol intake: never Desire information about alcohol rehabilitation?: No Counseling given: No Desire information about substance/drug rehabilitation?: No Counseling given: No Adopted: No Caregiver/support person: No Lives independently: Yes Household members: none Housing: Apartment Marital status: Single Number of children: 2 Highest education level completed: Some College, No Degree service: No Current occupational status: disabled Current occupational exposures/hazards: No Pets and animals: Yes History of recent travel: No Sexually active: No Current gender identity: Female Yoana/Anabaptist: Mormonism Special yoana needs: No Agree to transfusion: Yes Pertinent Exam Findings alert, oriented x 3, clear to auscultation bilaterally, regular rate & rhythm, operative site marked and procedure specific exam findings Recommendations Surgery/Procedure today Coding Level of Care Code Acute Assembler Lay Ups for Yanick Gupta
[2022-07-21 08:22] VITALS: BP 143/91; PULSE 98; RESP 18; TEMP 35.9; O2SAT 97
[2022-07-21] MEDS: sodium chloride 0.9% 1,000 ML 30 ML IV (08:29)
--- NOTE | 2022-07-21 08:57 | ANES.PREANE2 ---
Pre-Anesthetic Assessment Height/Weight: Height 1.65 m Weight 65.771 kg Temp Pulse Resp BP Pulse Ox O2 Del Method 96.6 F L 98 18 143/91 97 07/21/22 08:22 07/21/22 08:22 07/21/22 08:22 07/21/22 08:22 07/21/22 08:22 07/21/22 08:22 Preop Diagnosis: Epigastric pain Operation Date: 07/21/22 09:30 Proposed Procedures p EGD/colonoscopy [id number],Z80.0(Not Applicable) - Paulino Snow MD s Colonoscopy(Not Applicable) - Paulino Snow MD Familial anesthetic complications: none Was Beta Malathi taken within 24 hours: N/A Was Clonidine taken within 24 hours: N/A Last intake: Intake Last Liquid Date 07/20/22 Last Liquid Time 22:00 Last Solid Date 07/19/22 Last Solid Time 18:00 Social Tobacco 1ppd pack(s) per day 30+ pack years Exam alert, oriented x 3, clear to auscultation bilaterally and regular rate & rhythm Airway Submandibular: within normal limits Cervical ROM: within normal limits Mallampati: Class I Dentition: full Pulmonary Chronic Obstructive Pulmonary Disease CV/HEM None reported None reported Hepatic None reported GI Gastroesophageal Reflux Disease Metabolic Thyroid Disease [facility] Osteoarthritis/DJD Neuropsych Anxiety, Bipolar and Depression Anesthetic Plan ASA status: 2 Anesthesia: MAC Risk of > 500 ml blood loss (7ml/kg in children): No Medications/Allergies Home Medications Medication Instructions Recorded Confirmed Last Taken Type alprazolam 2 mg tablet 2 mg PO TID PRN Anxiety 08/17/20 07/17/22 06/26/22 History brexpiprazole 4 mg tablet (Rexulti) 4 mg PO DAILY 08/17/20 07/17/22 06/26/22 History pantoprazole 40 mg tablet,delayed 40 mg PO BID 08/17/20 07/17/22 06/26/22 History release (Protonix) biotin 5 mg capsule 5 mg PO DAILY 10/11/20 07/17/22 06/26/22 History calcium carbonate 600 mg-vitamin 1 cap PO DAILY 10/11/20 07/17/22 06/26/22 History D3 12.5 mcg (500 unit) capsule (Calcium 600 with Vitamin D3) alprazolam 3 mg tablet,extended 3 mg PO DAILY 01/16/21 07/17/22 06/26/22 History release 24 hr levothyroxine 100 mcg capsule 100 mcg PO DAILY 07/26/21 07/17/22 06/26/22 History vilazodone 10 mg tablet (Viibryd) 40 mg PO DAILY 07/26/21 07/17/22 06/26/22 History selenium 50 mcg tablet 200 mcg PO DAILY 03/12/22 07/17/22 06/26/22 History vitamin B complex 1 cap PO DAILY 03/12/22 07/17/22 06/26/22 History albuterol sulfate 90 mcg/actuation 2 puff inhalation Q6H PRN 06/26/22 07/17/22 Unknown History aerosol inhaler Shortness Of Breath Or Wheezing dextroamphetamine-amphetamine 20 20 mg PO BID 06/26/22 07/17/22 06/26/22 History mg tablet (Adderall) oxybutynin chloride 10 mg 10 mg PO DAILY 06/26/22 07/17/22 06/26/22 History tablet,extended release 24 hr ferrous sulfate 325 mg (65 mg 325 mg PO DAILY 07/17/22 07/17/22 Unknown History iron) tablet (Iron (ferrous sulfate)) lamotrigine 200 mg tablet 200 mg PO DAILY 07/17/22 07/17/22 Unknown History Allergies Allergy/AdvReac Type Severity Reaction Status Date / Time bupropion [From Wellbutrin] Allergy Severe rash Verified 07/17/22 12:01 lorazepam [From Ativan] Allergy Severe mood Verified 07/17/22 12:01 swings, angry trazodone Allergy Severe vomiting Verified 07/17/22 12:01 Current Medications Generic Name Dose Route Start Last Admin Trade Name Freq PRN Reason Stop Dose Admin Sodium Chloride 1,000 mls @ 30 mls/hr 07/21/22 08:15 07/21/22 08:29 Sodium Chloride 0.9% IV 30 mls/hr .Q24H JUAN Administration PFSH Anesthesia Medical History Anxiety Bipolar disorder Cystitis Depression Hypothyroidism Mixed stress and urge urinary incontinence Surgical History H/O breast augmentation H/O dilation and curettage H/O hand surgery H/O oral surgery wisdom teeth extraction H/O removal of cyst Hx of tonsillectomy Status post creation of urethral sling by suprapubic approach Family History Father Hypertension Dementia Clotting disorder Hyperlipidemia Heart disease Mother Diabetes Stroke Grandmother Thyroid condition maternal Denies family history of Colon cancer Ovarian cancer Breast cancer Anesthesia complication Bleeding disorder Uterine cancer Social History Smoking and tobacco status: current every day smoker e-cigarettes Quit status (tobacco): not considering quitting Smoking risk assessment/counseling performed?: Yes Alcohol intake: never Desire information about alcohol rehabilitation?: No Counseling given: No Desire information about substance/drug rehabilitation?: No Counseling given: No Adopted: No Caregiver/support person: No Lives independently: Yes Household members: none Housing: Apartment Marital status: Single Number of children: 2 Highest education level completed: Some College, No Degree service: No Current occupational status: disabled Current occupational exposures/hazards: No Pets and animals: Yes History of recent travel: No Sexually active: No Current gender identity: Female Yoana/Faith: Pentecostalism Special yoana needs: No Agree to transfusion: Yes Female Reproductive History Date of last menstrual period: 07/12/22 Data Anesthesia Cardiac Studies: No Data to Display
[2022-07-21 09:02] LABS: OR HCG Qualitative Urine Negative (Negative)
[2022-07-21 09:44] VITALS: BP 102/49; PULSE 66; RESP 18; TEMP 36.5; O2SAT 95
[2022-07-21 09:54] VITALS: BP 113/69; PULSE 67; RESP 18; TEMP 36.2; O2SAT 96
--- NOTE | 2022-07-21 14:47 | ANE.PACU2 ---
Inpatient post-anesthesia follow up: Airway intact: Yes Vital signs: Temperature 97.2 F Pulse Rate 67 Respiratory Rate 18 Blood Pressure 113/69 Pulse Oximetry 96 Oxygen Delivery Me thod Room Air Oxygen Flow Rate Fraction of Inspir ed Oxygen Hydration adequate: Yes Nausea and vomiting: No Pain level: 1 Mental status: Baseline
[2022-07-22 14:08] LABS: H. Pylori / CLO Test Negative
== END 2022-07-21 10:18 | disposition home or self-care (01) ==
PROVIDERS: Anesthesiology; PCP Family Medicine; Visit Provider Internal Medicine
PROC: 0DJ08ZZ Inspection of Upper Intestinal Tract, Via Natural or Artificial Opening Endoscopic (ICD-10-PCS; CPT 43235; principal; 2022-07-21 09:30)
PROC: 0DJD8ZZ Inspection of Lower Intestinal Tract, Via Natural or Artificial Opening Endoscopic (ICD-10-PCS; CPT 45378; 2022-07-21 09:30)
DX: K29.70 Gastritis, unspecified, without bleeding (principal); Z80.0 Family history of malignant neoplasm of digestive organs; J44.9 Chronic obstructive pulmonary disease, unspecified; K21.9 Gastro-esophageal reflux disease without esophagitis; F41.9 Anxiety disorder, unspecified; E03.9 Hypothyroidism, unspecified; F17.290 Nicotine dependence, other tobacco product, uncomplicated
CPT/HCPCS: 43239; 45378; 81025; 84703; 87077; J2704; J7030

== ENCOUNTER → 2023-02-04 10:05 | Outpatient (BNVA) | payer MEDICAID, SELFPAY | PROVIDERS: PCP Family Medicine; Referring Provider Family Medicine; Visit Provider Anesthesiology Pain Medicine | DX: M54.12 Radiculopathy, cervical region | CPT/HCPCS: 72040; 72070; 99204 ==

== ENCOUNTER 2023-02-19 13:21 | Outpatient (CLI) | payer MEDICAID, SELFPAY ==
--- NOTE | 2023-02-19 13:45 | MR_ITS ---
WS: [id number] MRI CERVICAL SPINE NONCONTRAST HISTORY: M54.12 - Radiculopathy, cervical region COMPARISON: 04/23/2016 Technique: Multiplanar, multisequence noncontrast imaging of the cervical spine. Increase in the cervical lordosis since the prior exam. C7 anterolisthesis by 3 mm. No fractures or m arrow edema. Disc spaces are all narrowed. Normal signal within the cervical cord. Craniocervical junction, C1 and C2 relationship, odontoid process and soft tissues are normal. C2-C3: Normal. C3-C4: Mild osteophytic ridging. C4-C5: Mild osteophytic ridging. No stenosis. C5-C6: Osteophytic ridging with mild annular disc bulging. LEFT paracentral and proximal foraminal di sc osteophyte. Smaller osteophyte in the RIGHT foramen. Mild to moderate bilateral foraminal stenosis similar to the prior study. C6-C7: Diffuse osteophytic ridging and annular disc bulging. Mild encroachment upon the ventral theca l sac. The disc contacts the ventral cord with mild central and foraminal stenosis. C7-T1: Mild annular disc bulging and foraminal stenosis. Mild central stenosis. Paraspinal soft tissue are normal. MR/MR cervical spin wo con* [id number] IMPRESSION: 1. Increase in the cervical lordosis since the prior study from 2015. 2. C7 anterolisthesis by 3 mm. 3. LEFT paracentral and proximal foraminal disc osteophyte at C5-6 smaller ost eophyte RIGHT foramen. Mild to moderate bilateral foraminal stenosis. Similar t o the prior study. 4. Mild central and bilateral foraminal stenosis at C6-7 due to disc and osteo phyte disease. 5. Mild central and foraminal stenosis at C7-T1. 6. No significant increase in central or foraminal stenosis since the prior st udy.
== END 2023-02-19 13:22 | disposition home or self-care (01) ==
LOC: RAD 13:23
PROVIDERS: PCP Family Medicine; Visit Provider Anesthesiology Pain Medicine
DX: M54.12 Radiculopathy, cervical region (principal); M48.02 Spinal stenosis, cervical region; M25.78 Osteophyte, vertebrae
CPT/HCPCS: 72040; 72070; 72141; 99204

== ENCOUNTER → 2023-03-12 11:28 | Outpatient (BNVA) | payer MEDICAID, SELFPAY | PROVIDERS: PCP Family Medicine; Visit Provider Urology | DX: N30.90 Cystitis, unspecified without hematuria (principal); N39.46 Mixed incontinence | CPT/HCPCS: 51798; 81003; 87077; 87086; 87186; 99213 ==

== ENCOUNTER → 2023-03-23 10:28 | Outpatient (BNVA) | payer MEDICAID, SELFPAY | PROVIDERS: PCP Family Medicine; Visit Provider Anesthesiology Pain Medicine | DX: M54.12 Radiculopathy, cervical region (principal) | CPT/HCPCS: 99214 ==

== ENCOUNTER → 2023-03-26 08:38 | Outpatient (BNVA) | payer MEDICAID, SELFPAY | PROVIDERS: PCP Family Medicine; Visit Provider Anesthesiology Pain Medicine | DX: M79.18 Myalgia, other site (principal); M54.12 Radiculopathy, cervical region | CPT/HCPCS: 20553; 99212; J1030; J3490 ==

== ENCOUNTER 2023-04-22 14:21 | Outpatient (CLI) | payer MEDICAID, SELFPAY ==
[2023-04-22 15:31] LABS: Free T4 Free Thyroxine 1.99 ng/dL (0.82-1.77); T3 Free 2.3 PG/ML (2.0-4.4); Thyroid Stimulating Hormone 1.08 uIU/mL (0.27-4.20)
[2023-04-24 10:29] LABS: T3 Total 76 ng/dL (76-181)
== END 2023-04-22 14:22 | disposition home or self-care (01) ==
LOC: LAB 14:29
PROVIDERS: PCP Family Medicine; Visit Provider Family Medicine
DX: E03.4 Atrophy of thyroid (acquired) (principal)
CPT/HCPCS: 36415; 84439; 84443; 84480; 84481

== ENCOUNTER → 2023-04-23 13:28 | Outpatient (BNVA) | payer MEDICAID, SELFPAY | PROVIDERS: PCP Family Medicine; Visit Provider Internal Medicine | DX: R79.89 Other specified abnormal findings of blood chemistry (principal); E03.9 Hypothyroidism, unspecified; Z79.890 Hormone replacement therapy | CPT/HCPCS: 99214 ==

== ENCOUNTER 2023-08-28 14:17 | Outpatient (CLI) | payer MEDICAID, SELFPAY ==
[2023-08-28 14:59] LABS: Basophils # 0.1 10^3/uL (0.0-0.1); Basophils % 0.7 %; Hematocrit 41.2 % (36-47); Lymphocytes # 2.1 10^3/uL (0.8-4.8); Lymphocytes % 23.6 %; Mean Corpuscular Hemoglobin 30.8 pg (27-33); Mean Corpuscular Volume 93.2 fl (85-98); Monocytes # 0.4 10^3/uL (0.2-0.9); Monocytes % 4.3 %; Neutrophils % 70.9 %; Nucleated Red Blood Cells % 0 %; Platelet Count 408 10^3/cmm (157-399); Red Blood Count 4.42 10^6/uL (3.85-5.65); Red Cell Distribution Width 12.1 % (12.1-15.1); White Blood Count 8.74 10^3/uL (3.29-11.43)
[2023-08-28 15:19] LABS: Iron 48 ug/dL (37-145); Total Iron Binding Capacity 319 mcg/dl; Unsaturated Iron Binding 271 ug/dL (112-347)
[2023-08-28 15:27] LABS: Thyroid Stimulating Hormone 0.53 uIU/mL (0.27-4.20)
== END 2023-08-28 14:18 | disposition home or self-care (01) ==
LOC: LAB 14:23
PROVIDERS: PCP Family Medicine; Visit Provider Family Medicine
DX: Z01.89 Encounter for other specified special examinations (principal)
CPT/HCPCS: 36415; 83540; 83550; 84439; 84443; 84481; 85025

== ENCOUNTER 2023-10-22 20:33 | Emergency (ER) | payer MEDICAID, SELFPAY ==
[2023-10-22 20:40] VITALS: BP 136/81; PULSE 110; RESP 18; TEMP 36.8; O2SAT 100
--- NOTE | 2023-10-22 20:45 | ECG_ITS ---
[facility] Test Date: 2023-10-22 Pat Name: Britta Rothman Department: Room: Gender: Female Computer Artist: : 1970 Requested By: Roland Harvey Order Number: [id number] Shira MD: Rigo May M.D. Measurements Intervals [place] Rate: 105 P: 69 [place]: 124 QRS: -32 QRSD: 113 T: 84 QT: 352 QTc: 467 Interpretive Statements SINUS TACHYCARDIA LEFT AXIS DEVIATION [QRS AXIS < -30] LOW QRS VOLTAGE IN PRECORDIAL LEADS [QRS DEFLECTION < 1.0 mV IN CHEST LEADS] ANTEROSEPTAL MYOCARDIAL INFARCTION , OF INDETERMINATE AGE [40+ ms Q WAVE IN V1-V4] Compared to ECG 02/21/2019 22:09:00 Left-axis deviation now present Myocardial infarct finding now present Sinus rhythm no longer present Electronically Signed On 10-23-2023 6:51:12 BASKETBALL ASSEMBLER by Rigo May M.D. [id number]
--- NOTE | 2023-10-22 20:55 | XRR_ITS ---
PROCEDURE INFORMATION: Exam: XR Chest Exam date and time: 10/22/2023 9:13 PM Age: 53 years old Clinical indication: Sternal or substernal pain; Patient HX: C/O substernal chest pain since waking up from surgery yesterday. Rates the pain 03/07. Has been constant and SOB. States that she had a d/c yesterday with Dr rodriguez at [facility] and was told that her uterus was punctured and than worked her up for mi. States that she was never told if she had a heart attack. Echo results not given to patient. Ibu 800mg taken 3hrs ago. ; Additional info: Cp TECHNIQUE: Imaging protocol: Radiologic exam of the chest. Views: 1 view. COMPARISON: CR XR chest 2V* [id number] 02/21/2019 9:29 PM FINDINGS: Lungs: Unremarkable. No consolidation. Pleural spaces: Unremarkable. No pleural effusion. No pneumothorax. Heart/Mediastinum: Unremarkable. No cardiomegaly. Bones/joints: Unremarkable. XR/XR chest 1V portable [id number] IMPRESSION: No acute findings.
[2023-10-22 21:01] LABS: Basophils % 0.4 %; Eosinophils % 0.1 %; Hematocrit 37.3 % (36-47); Lymphocytes # 4.3 10^3/uL (0.8-4.8); Lymphocytes % 43.6 %; Mean Corpuscular HGB Conc 34.6 g/dL (30-55); Mean Corpuscular Hemoglobin 30.9 pg (27-33); Mean Corpuscular Volume 89.4 fl (85-98); Monocytes # 0.5 10^3/uL (0.2-0.9); Monocytes % 5.4 %; Neutrophils # 4.98 10^3/uL (1.8-7.7); Neutrophils % 50.1 %; Nucleated Red Blood Cells % 0 %; Platelet Count 372 10^3/cmm (157-399); Red Blood Count 4.17 10^6/uL (3.85-5.65); Red Cell Distribution Width 12.3 % (12.1-15.1); White Blood Count 9.94 10^3/uL (3.29-11.43)
[2023-10-22 21:02] VITALS: BP 105/84; PULSE 86; RESP 14; O2SAT 98
[2023-10-22] MEDS: ondansetron 2 mg/ML SDV 2 mL 4 MG IVP (21:05)
[2023-10-22 21:06] VITALS: RESP 13; O2SAT 99
[2023-10-22] MEDS: morphine 4 mg/mL SDV 1 mL IVP (21:06)
--- NOTE | 2023-10-22 21:12 | ECG_ITS ---
[facility] Test Date: 2023-10-22 Pat Name: Britta Rothman Department: Room: Gender: Female Mold Design Engineer: : 1970 Requested By: Roland Harvey Order Number: [id number] Shira MD: Rigo May M.D. Measurements Intervals [place] Rate: 86 P: 68 IN: 152 QRS: 35 QRSD: 73 T: 55 QT: 333 QTc: 399 Interpretive Statements SINUS RHYTHM LOW QRS VOLTAGE IN PRECORDIAL LEADS [QRS DEFLECTION < 1.0 mV IN CHEST LEADS] ANTEROSEPTAL MYOCARDIAL INFARCTION , OF INDETERMINATE AGE [40+ ms Q WAVE IN V1-V4] Compared to ECG 02/21/2019 22:09:00 Myocardial infarct finding now present Electronically Signed On 10-23-2023 6:51:38 TRAUMA COORDINATOR by Rigo May M.D. [id number]
[2023-10-22 21:13] LABS: INR 0.89 (0.8-1.2)
--- NOTE | 2023-10-22 21:13 | ED_ITS ---
HPI - Chest Pain 2 General: Chief Complaint: Chest Pain Stated Complaint: Surgery Yesterday\Chest Pains\SOB Time Seen by Provider: 10/22/23 20:55 Source: patient Mode of arrival: ambulatory Limitations: no limitations History of Present Illness: 53-year-old female states that she had a D&C done yesterday at an outlying facility states that they did this due to vaginal bleeding she states that they believe that they had punctured her uterus they did an laparoscopic and saw no bleeding at that time she states it also told her that her troponins were elevated but they trended down and they had discharged her she states that she is continued to have abdominal pain along with chest pain and some shortness of breath she denies any vomiting or diarrhea. Associated symptoms: Reports abdominal pain; Deny dyspnea, fever(s), nausea or vomiting Review of Systems 2 Const: Denies: fever(s), chills, body aches or change in appetite ENMT: Denies: throat pain or dental pain Card: Reports: chest pain Resp: Denies: dyspnea GI: Reports: abdominal pain; Denies: nausea, vomiting or diarrhea : Reports: vaginal bleeding; Denies: dysuria Musc: Denies: neck pain or back pain Skin/Breast: Denies: rash Neuro: Denies: headache(s) PFSH ED 2 PFSH: Medical History Bipolar disorder Hypothyroidism Anxiety Depression Cystitis Mixed stress and urge urinary incontinence Surgical History H/O oral surgery wisdom teeth extraction H/O removal of cyst H/O dilation and curettage H/O breast augmentation Status post creation of urethral sling by suprapubic approach Hx of tonsillectomy H/O hand surgery Family History Father Hypertension Dementia Clotting disorder Hyperlipidemia Heart disease Mother Diabetes Stroke Grandmother Thyroid disease maternal Denies family history of Colon cancer Ovarian cancer Breast cancer Anesthesia complication Bleeding disorder Uterine cancer Social History Smoking and tobacco/nicotine status: current every day tobacco/nicotine user e- cigarettes Quit status (tobacco/nicotine): not considering quitting Alcohol intake: never Substance/Drug Use: never Adopted: No Caregiver/support person: No Lives independently: Yes Household members: none Housing: Apartment Marital status: Single Number of children: 2 Highest education level completed: Some College, No Degree service: No Current occupational status: disabled Current occupational exposures/hazards: No Pets and animals: Yes Sexually active: No Do you think of yourself as: Straight/Heterosexual Current gender identity: Female Yoana/Spiritism: Taoism Special yoana needs: No Agree to transfusion: Yes Physical Exam 2 Const: COMMON NORMALS: no acute distress, patient oriented x3 and healthy appearing HENMT: COMMON NORMALS: normocephalic and atraumatic HEAD & SCALP: n ormocephalic and atraumatic Eye: COMMON NORMALS: Equal, round and reactive pupils present and EOMs intact bilaterally PUPIL: Yes Equal, round and reactive pupils present Neck/C-Spine: COMMON NORMALS: full ROM and supple Chest: COMMONS NORMALS: normal inspection of the chest and normal palpation of entire chest wall Resp: COMMON NORMALS: normal respiratory effort, No retractions, No use of accessory muscles and clear to auscultation bilaterally AUSCULTATION: clear to auscultation bilaterally Cardio: COMMON NORMALS: regular rate, regular rhythm and No murmurs present (Cardio) RATE: regular rate RHYTHM: regular rhythm GI: COMMON NORMALS: Normal to inspection, nondistended, normoactive bowel sounds present, Soft to palpation, non-tender and no masses PALPATION: Yes Soft to palpation Extremity: COMMON NORMALS: normal to inspection and full ROM Neuro: COMMON NORMALS: patient oriented x3, moves all extremities and no focal motor deficits Psych: COMMON NORMALS: mental status grossly normal, Normal thought process present and cooperative THOUGHT PROCESS: Normal thought process present Skin: COMMON NORMALS: no rashes or lesions noted and no wounds GENERAL SKIN EXAM: no rashes or lesions noted Course 2 Vital Signs: Vital signs: Vital Signs Temperature 98.3 F 10/22/23 20:40 Pulse Rate 86 10/22/23 21:02 Respiratory Rate 13 10/22/23 21:06 Blood Pressure 105/84 10/22/23 21:02 Pulse Oximetry 99 10/22/23 21:06 Oxygen Delivery Me thod Room Air 10/22/23 21:02 MDM - Chest Pain Medical Decision Making Patient presents here with chest and abdominal pain is likely postop pain she is well-appearing here white counts normal hemoglobin normal troponins normal she feels improved here do not believe she needs any imaging she has no signs acute or syndrome we will prescribe her pain meds she is to follow-up with PCP and return if worsening. Medical Records I reviewed the patient's medical records. Lab Data I reviewed the patient's lab results. 10/22/23 20:50 10/22/23 20:50 Laboratory Results WBC 9.94 10^3/uL (3.29-11.43) 10/22/23 20:50 RBC 4.17 10^6/uL (3.85-5.65) 10/22/23 20:50 Hgb 12.90 g/dL (11.27-16.99) 10/22/23 20:50 Hct 37.3 % (36-47) 10/22/23 20:50 MCV 89.4 fl (85-98) 10/22/23 20:50 MCH 30.9 pg (27-33) 10/22/23 20:50 MCHC 34.6 g/dL (30-55) 10/22/23 20:50 RDW 12.3 % (12.1-15.1) 10/22/23 20:50 Plt Count 372 10^3/cmm (157-399) 10/22/23 20:50 MPV 10.0 fL (7.4-10.4) 10/22/23 20:50 Neut % (Auto) 50.1 % 10/22/23 20:50 Lymph % (Auto) 43.6 % 10/22/23 20:50 [place] % (Auto) 5.4 % 10/22/23 20:50 Eos % (Auto) 0.1 % 10/22/23 20:50 Baso % (Auto) 0.4 % 10/22/23 20:50 Neut # (Auto) 4.98 10^3/uL (1.8-7.7) 10/22/23 20:50 Lymph # (Auto) 4.3 10^3/uL (0.8-4.8) 10/22/23 20:50 [place] # (Auto) 0.5 10^3/uL (0.2-0.9) 10/22/23 20:50 Eos # (Auto) 0.0 10^3/uL (0.0-0.8) 10/22/23 20:50 Baso # (Auto) 0.0 10^3/uL (0.0-0.1) 10/22/23 20:50 Nucleated RBC % (auto) 0 % 10/22/23 20:50 Nucleated RBCs # 0.0 /100WBC 10/22/23 20:50 PT 12.30 SECONDS (12.1-14.9) 10/22/23 20:50 INR 0.89 (0.8-1.2) 10/22/23 20:50 Sodium 141 mmol/L (136-145) 10/22/23 20:50 Potassium 3.4 mmol/L (3.5-5.1) L 10/22/23 20:50 Chloride 103 mmol/L (98-107) 10/22/23 20:50 Carbon Dioxide 24 mmol/L (22-29) 10/22/23 20:50 Anion Gap 17.4 (5-19) 10/22/23 20:50 BUN 10 mg/dL (6-20) 10/22/23 20:50 Creatinine 0.8 mg/dL (0.5-0.9) 10/22/23 20:50 GFR Calculation 75.6 mL/min (90-130) L 10/22/23 20:50 Glucose 111 mg/dL (65-115) 10/22/23 20:50 Calculated Osmolality 292 mOsm/kg (285-295) 10/22/23 20:50 Calcium 9.0 mg/dL (8.5-10.5) 10/22/23 20:50 Total Bilirubin 0.2 mg/dL (0.15-1.2) 10/22/23 20:50 AST 16 U/L (0-32) 10/22/23 20:50 ALT 10 U/L (0-33) 10/22/23 20:50 Alkaline Phosphatase 54 U/L (35-105) 10/22/23 20:50 Troponin T Baseline < 6 ng/L (0-10) 10/22/23 20:50 Total Protein 6.4 g/dL (6.6-8.7) L 10/22/23 20:50 Albumin 4.0 g/dL (3.5-5.2) 10/22/23 20:50 Globulin 2.4 g/dL (1.3-4.6) 10/22/23 20:50 Lipase 30 U/L (13-60) 10/22/23 20:50 XR interpretation done by ED provider, pending radiology final review Discharge Plan Discharge Patient Disposition: Home Clinical Impression: Chest pain, Abdominal pain Condition: Stable Prescriptions: New hydrocodone-acetaminophen 5-325 mg tablet 1 tab PO Q6H PRN (Reason: pain) Qty: 14 0RF ondansetron 4 mg tablet,disintegrating 4 mg PO Q6H PRN (Reason: nausea and vomiting) Qty: 14 0RF No Action calcium carbonate-vitamin D3 [Calcium 600 with Vitamin D3] 600 mg(1,500mg) - 500 unit capsule 1 cap PO DAILY biotin 5 mg capsule 5 mg PO DAILY alprazolam 3 mg tablet extended release 24 hr 3 mg PO DAILY pantoprazole [Protonix] 40 mg tablet,delayed release (DR/EC) 40 mg PO BID alprazolam 2 mg tablet 2 mg PO TID PRN (Reason: Anxiety) Viibryd 10 mg tablet 40 mg PO DAILY Rx Instructions: must administer with a meal/food vitamin B complex Capsule 1 cap PO DAILY selenium 50 mcg tablet 200 mcg PO DAILY marijuana inhalation methylphenidate HCl [Ritalin] 20 mg tablet 20 mg PO BID [id number] [Fioricet] 50-300-40 mg capsule 1 cap PO Q8H PRN fluconazole [Diflucan] 150 mg tablet 150 mg PO Q3D Qty: 2 0RF amoxicillin-pot clavulanate 875-125 mg tablet 1 tab PO BID 10 Days Qty: 20 0RF fluconazole [Diflucan] 150 mg tablet 150 mg PO Q3D Qty: 7 4RF oxybutynin chloride 10 mg tablet extended release 24hr 10 mg PO DAILY Qty: 90 3RF nitrofurantoin monohyd/m-cryst [Macrobid] 100 mg capsule 100 mg PO BID Qty: 60 6RF Rx Instructions: must administer with a meal/food Vraylar 3 mg capsule 3 mg PO DAILY levothyroxine 75 mcg tablet See Rx Instructions .ROUTE .COMPLEX Qty: 30 0RF Dose Instruction: TAKE 1 TABLET BY MOUTH DAILY Rx Instructions: TAKE 1 TABLET BY MOUTH DAILY albuterol sulfate 90 mcg/actuation Hfa Aerosol Inhaler 2 puff INHALATION Q6H PRN (Reason: Shortness Of Breath Or Wheezing) lamotrigine 200 mg tablet 200 mg PO DAILY ferrous sulfate [Iron (ferrous sulfate)] 325 mg (65 mg iron) Tablet 325 mg PO DAILY Discharge Orders: Discharge ED (Routine); Ordered 10/22/23 Ordered By: Roland Harvey Referrals: Alma Banda DO [Primary Care Provider] - Discharge Diet: Advance as tolerated Discharge Activity: Resume usual activity Patient Instructions: Abdominal Pain (ED), Opioid Safety Coding Level of Care Code ED Supervisor Meter Shop for Yanick Gupta
[2023-10-22 21:20] LABS: Alanine Aminotransferase 10 U/L (0-33); Alkaline Phosphatase 54 U/L (35-105); Anion Gap 17.4 (5-19); Aspartate Amino Transferase 16 U/L (0-32); Blood Urea Nitrogen 10 mg/dL (6-20); Carbon Dioxide 24 mmol/L (22-29); Chloride 103 mmol/L (98-107); Globulin 2.4 g/dL (1.3-4.6); Glomerular Filtration Rate 75.6 mL/min (90-130); Glucose 111 mg/dL (65-115); Lipase 30 U/L (13-60); Osmolality Calculated 292 mOsm/kg (285-295); Potassium 3.4 mmol/L (3.5-5.1); Sodium 141 mmol/L (136-145); Total Bilirubin 0.2 mg/dL (0.15-1.2); Total Protein 6.4 g/dL (6.6-8.7)
[2023-10-22 21:31] LABS: Troponin(5th) Baseline < 6 ng/L (0-10)
[2023-10-22] MEDS: HYDROcodone-acetaminophen 5-325 mg Tablet 2 TAB PO (21:45)
[2023-10-22 21:52] VITALS: BP 110/76; PULSE 85; O2SAT 98
== END 2023-10-22 21:55 | disposition home or self-care (01) ==
PROVIDERS: Emergency Provider Emergency Medicine; PCP Family Medicine
DX: R07.9 Chest pain, unspecified (principal); R10.9 Unspecified abdominal pain; F17.290 Nicotine dependence, other tobacco product, uncomplicated
CPT/HCPCS: 71045; 80053; 83690; 84484; 85025; 85610; 93005; 96374; 96375; 99285; J2270; J2405

== ENCOUNTER → 2023-10-29 16:20 | Outpatient (BNVA) | payer MEDICAID, SELFPAY | PROVIDERS: PCP Family Medicine; Visit Provider Obstetrics & Gynecology | DX: N93.9 Abnormal uterine and vaginal bleeding, unspecified (principal); N92.4 Excessive bleeding in the premenopausal period | CPT/HCPCS: 83001; 84146; 85025 ==

== ENCOUNTER → 2023-11-12 14:10 | Outpatient (BNVA) | payer MEDICAID, SELFPAY | PROVIDERS: PCP Family Medicine; Visit Provider Obstetrics & Gynecology | DX: N92.4 Excessive bleeding in the premenopausal period (principal); D25.9 Leiomyoma of uterus, unspecified | CPT/HCPCS: 76830 ==

== ENCOUNTER 2023-12-29 08:41 | Outpatient (CLI) | payer MEDICAID, SELFPAY ==
[2023-12-29 09:59] LABS: Free T4 Free Thyroxine 1.29 ng/dL (0.82-1.77); T3 Free 2.5 PG/ML (2.0-4.4); Thyroid Stimulating Hormone 4.06 uIU/mL (0.27-4.20)
== END 2023-12-29 08:42 | disposition home or self-care (01) ==
PROVIDERS: PCP Family Medicine; Visit Provider Family Medicine
DX: E03.4 Atrophy of thyroid (acquired) (principal)
CPT/HCPCS: 36415; 84439; 84443; 84481

== ENCOUNTER 2024-01-22 12:32 | Outpatient (CLI) | payer MEDICAID, SELFPAY ==
[2024-01-22 12:36] VITALS: BMI 23.3
--- NOTE | 2024-01-22 12:42 | ECG_ITS ---
[facility] Test Date: 2024-01-22 Pat Name: Britta Rothman Department: Room: Gender: Female Technology Services Manager: : 1970 Requested By: Rigo Reynoso Order Number: [id number] Silva MD: Annie Perez M.D. Interpretive Statements NAME OF STUDY: TREADMILL STRESS TEST INDICATION: Chest PainDR REYNOSO ORDERED PROCEDURE: At the baseline, the patient's blood pressure was 127/81 with a heart rate of 93. The baseline electrocardiogram showed normal sinus rhythm with nonspecific IVCD. Poor R wave progression. The patient exercised for 7 minutes and 1 second on a standard Samuel protocol. Patient attained a maximum heart rate of 148 beats per minute(87% of the maximum predicted heart rate) with a blood pressure at the peak exercise of 127/98 mm Hg. The EKG at the peak exercise revealed no significant changes. Patient did not have any chest pain or any significant cardiac arrhythmias with the exercise During the recovery phase, there were no new changes. 5 minutes into the recovery phase, the blood pressure dropped to 84/63. Then the pressure went up to 163/74 Blood pressure at the end of the recovery phase was 118/61 mm Hg with a heart rate of 92 per minute. CONCLUSION: 1. Normal EKG response to treadmill exercise 2. No exercise-induced chest pain or cardiac arrhythmia 3. Slightly impaired exercise tolerance, attained a maximum of 7.6 METs 4. Exercise-induced hypotension during the recovery phase Electronically Signed On 01-28-2024 8:24:44 CDT by Annie Perez M.D. [id number]
[2024-01-22 13:31] VITALS: BP 116/81; PULSE 82
--- NOTE | 2024-01-22 14:30 | USCV_ITS ---
Britta Rothman Age: 53 Gender: F : 1970 Exam Date: 01/22/2024 15:01 Ordering Phys: Rigo May MD (omcnandrew/cass) Technologist: TAZ Exam Location: [facility] [place] Indication: PALPITATIONS BP: 124 / 72 HR: 72 Rhythm: Sinus Technical Quality: Adequate MEASUREMENTS (Male / Female) Normal Values 2D ECHO LV Diastolic Diameter PLAX 3.1 cm 4.2 - 5.9 / 3.9 - 5.3 cm IVS Diastolic Thickness 1.3 cm 0.6 - 1.0 / 0.6 - 0.9 cm IVS Systolic Thickness 1.7 cm LVPW Diastolic Thickness 1.4 cm 0.6 - 1.0 / 0.6 - 0.9 cm LVPW Systolic Thickness 2.0 cm LVOT Diameter 1.9 cm LV Ejection Fraction 2D Teich 87.0 % LV Ejection Fraction MOD 2C 52.4 % LV Ejection Fraction 2C AL 55.4 % LA Diameter 2.5 cm RA Systolic Volume 4C AL 10.5 ml RA Systolic Volume 4C MOD 10.2 ml LA Sys Volume AL 24.0 cm cubed LA Sys Volume Index AL 14.0 cm cubed/m squared Aorta at Sinotubular Diameter 1.9 cm IVC Diameter 1.2 cm M-MODE LA Ao Ratio MM 1.1 AV Cusp Separation MM 1.6 cm DOPPLER AV Peak Velocity 150.0 cm/s LVOT Peak Velocity 110.0 cm/s AV Area Cont Eq vti 2.2 cm squared AV Area Cont Eq pk 2.2 cm squared MV Peak Velocity 96.0 cm/s MV Area PHT 3.4 cm squared Mitral E to A Ratio 0.9 TR Peak Velocity 177.0 cm/s TR Peak Gradient 12.5 mmHg TR Mean Velocity 147.0 cm/s TR Mean Gradient 9.0 mmHg TR Velocity Time Integral 51.8 cm TV Peak E Velocity 46.0 cm/s Right Atrial Pressure 3.0 mmHg Pulmonary Artery Systolic Pressu 15.5 mmHg PV Peak Velocity 142.0 cm/s FINDINGS Left Ventricle Normal left ventricular size and systolic function, EF 55%.abnormal septal motion consistent with conduction abnormality. Right Ventricle The right ventricle is normal in size and function. Right Atrium The right atrium is normal in size. Left Atrium The left atrium is normal in size. Mitral Valve Trace mitral valve regurgitation. Aortic Valve No gross abnormalities noted Tricuspid Valve Trace of tricuspid valve regurgitation. Estimated pulmonary artery peak systolic pressure 15 mm of Hg Pulmonic Valve Pulmonic valve not well visualized. Pericardium Normal pericardium without effusion. Aorta Normal ascending aorta dimension. IVC Normal inferior vena cava. CONCLUSIONS Normal left ventricular size and systolic function, EF 55%. Abnormal septal motion consistent with conduction abnormality. Trace mitral valve regurgitation. Trace of tricuspid valve regurgitation. Estimated pulmonary artery peak systolic pressure within normal limits. Possibly normal cardiac chamber sizes. There is no pericardial effusion. There are no intracardiac masses. No similar previous studies are available for comparison. Dr Annie Perez MD FACC (Electronically Signed) Final Date: 28 Jan 2024 11:26 S
== END 2024-01-22 12:33 | disposition home or self-care (01) ==
PROVIDERS: PCP Family Medicine; Visit Provider Internal Medicine Cardiovascular Disease
DX: R00.2 Palpitations (principal); R93.1 Abnormal findings on diagnostic imaging of heart and coronary circulation
CPT/HCPCS: 93017; 93306

== ENCOUNTER → 2024-01-29 09:31 | Outpatient (BNVA) | payer MEDICAID, SELFPAY | PROVIDERS: PCP Family Medicine; Visit Provider Nurse Practitioner Family | DX: R00.2 Palpitations (principal); F17.290 Nicotine dependence, other tobacco product, uncomplicated | CPT/HCPCS: 99214 ==

== ENCOUNTER → 2024-03-10 14:02 | Outpatient (BNVA) | payer MEDICAID, SELFPAY | PROVIDERS: Visit Provider Obstetrics & Gynecology | DX: R79.89 Other specified abnormal findings of blood chemistry (principal); E03.9 Hypothyroidism, unspecified | CPT/HCPCS: 83001 ==

== ENCOUNTER → 2024-05-11 11:04 | Outpatient (BNVA) | payer MEDICAID, SELFPAY | PROVIDERS: PCP Family Medicine; Visit Provider Nurse Practitioner Family | DX: R00.2 Palpitations (principal); Z72.0 Tobacco use | CPT/HCPCS: 99213 ==

== ENCOUNTER 2024-06-15 13:23 | Outpatient (CLI) | payer MEDICAID, SELFPAY ==
[2024-06-15 14:08] LABS: Basophils # 0.1 10^3/uL (0.0-0.1); Basophils % 0.5 %; Hematocrit 41.3 % (36-47); Lymphocytes # 2.7 10^3/uL (0.8-4.8); Lymphocytes % 25.6 %; Mean Corpuscular HGB Conc 33.4 g/dL (30-55); Mean Corpuscular Hemoglobin 30.8 pg (27-33); Mean Corpuscular Volume 92.2 fl (85-98); Mean Platelet Volume 10.2 fL (7.4-10.4); Monocytes # 0.6 10^3/uL (0.2-0.9); Monocytes % 5.7 %; Neutrophils # 7.16 10^3/uL (1.8-7.7); Neutrophils % 67.8 %; Nucleated Red Blood Cells % 0 %; Platelet Count 421 10^3/cmm (157-399); Red Blood Count 4.48 10^6/uL (3.85-5.65); Red Cell Distribution Width 11.9 % (12.1-15.1); White Blood Count 10.55 10^3/uL (3.29-11.43)
[2024-06-15 14:39] LABS: Alanine Aminotransferase 13 U/L (0-33); Albumin Level 4.1 g/dL (3.5-5.2); Alkaline Phosphatase 62 U/L (35-105); Anion Gap 14.9 (5-19); Aspartate Amino Transferase 16 U/L (0-32); Blood Urea Nitrogen 14 mg/dL (6-20); Calcium 8.9 mg/dL (8.5-10.5); Carbon Dioxide 25 mmol/L (22-29); Chloride 101 mmol/L (98-107); Free T4 Free Thyroxine 1.37 ng/dL (0.82-1.77); Globulin 2.8 g/dL (1.3-4.6); Glomerular Filtration Rate 58.5 mL/min (90-130); Glucose 105 mg/dL (65-115); Osmolality Calculated 285 mOsm/kg (285-295); Potassium 3.9 mmol/L (3.5-5.1); Sodium 137 mmol/L (136-145); T3 Free 2.1 PG/ML (2.0-4.4); Thyroid Stimulating Hormone 2.88 uIU/mL (0.27-4.20); Total Bilirubin 0.3 mg/dL (0.15-1.2); Total Protein 6.9 g/dL (6.6-8.7)
== END 2024-06-15 13:24 | disposition home or self-care (01) ==
LOC: LAB 13:26
PROVIDERS: PCP Family Medicine; Visit Provider Family Medicine
DX: E03.4 Atrophy of thyroid (acquired) (principal); D50.0 Iron deficiency anemia secondary to blood loss (chronic)
CPT/HCPCS: 36415; 80053; 84439; 84443; 84481; 85025

== ENCOUNTER 2024-08-16 09:38 | Day surgery (SDC) | payer MEDICAID, SELFPAY ==
--- NOTE | 2024-08-09 11:18 | ANES.PREANE2 ---
Pre-Anesthetic Assessment Height/Weight: Height 5 ft 5 in Operation Date: 08/16/24 10:50 Proposed Procedures p Hysteroscopy w/ Myosure 09513, 49080, N95.0(Not Applicable) - Angel Aleman MD s Dilation And Curettage (D&C)(Not Applicable) - Angel Aleman MD Was Beta Malathi taken within 24 hours: N/A Was Clonidine taken within 24 hours: N/A Social No alcohol and No tobacco Exam alert, oriented x 3, clear to auscultation bilaterally and regular rate & rhythm Airway Submandibular: within normal limits Cervical ROM: within normal limits Mallampati: Class III Dentition: full Anesthetic Plan ASA status: 3 Anesthesia: General Other: No prior issues with anesthesia NPO after midnight prior to surgery Hypothyroidism on Synthroid GERD on Protonix Patient is on methylphenidate Cardiac Holter monitor earlier this year showing baseline sinus rhythm with occasional sinus tachycardia Plan for general anesthesia Medications/Allergies Home Medications Medication Instructions Recorded Confirmed Last Taken Type pantoprazole 40 mg tablet,delayed 40 mg PO BID 08/17/20 08/09/24 08/09/24 History release (Protonix) vilazodone 10 mg tablet (Viibryd) 40 mg PO DAILY 07/26/21 08/09/24 08/09/24 History lamotrigine 200 mg tablet 200 mg PO DAILY 07/17/22 08/09/24 08/09/24 History cariprazine 3 mg capsule (Vraylar) 3 mg PO DAILY 09/09/22 08/09/24 08/09/24 History zuwbmfzpah-gzkjlctcrqyen-pqsyynaf 1 cap PO Q8H PRN headaches 02/04/23 08/09/24 07/10/24 History 50 mg-300 mg-40 mg capsule (Fioricet) methylphenidate HCl 20 mg tablet 20 mg PO TID 02/04/23 08/09/24 08/09/24 History (Ritalin) oxybutynin chloride 10 mg 10 mg PO DAILY #90 tabs 03/12/23 08/09/24 08/09/24 Rx tablet,extended release 24 hr medroxyprogesterone 10 mg tablet 10 mg PO DAILY 30 days #30 tabs 06/12/24 08/09/24 08/09/24 Rx ibuprofen 800 mg tablet 800 mg PO TID #90 tabs 07/26/24 08/09/24 Unknown Rx cholecalciferol (vitamin D3) 50 50 mcg PO DAILY 08/08/24 08/09/24 08/09/24 History mcg (2,000 unit) capsule ferrous sulfate 325 mg (65 mg 325 mg PO DAILY 08/08/24 08/09/24 08/09/24 History iron) tablet estradiol 1 mg tablet 1.5 mg PO DAILY 08/09/24 08/09/24 08/09/24 History levothyroxine 75 mcg tablet 75 mcg PO DAILY 08/09/24 08/09/24 08/09/24 History Allergies Allergy/AdvReac Type Severity Reaction Status Date / Time bupropion [From Wellbutrin] Allergy Severe rash Verified 08/08/24 09:01 lorazepam [From Ativan] Allergy Severe mood Verified 08/08/24 09:01 swings, angry trazodone Allergy Severe vomiting Verified 08/08/24 09:01 [facility] Anesthesia Medical History Palpitations Bipolar disorder Hypothyroidism Anxiety Depression Cystitis Mixed stress and urge urinary incontinence Surgical History H/O oral surgery wisdom teeth extraction H/O removal of cyst H/O dilation and curettage H/O breast augmentation Status post creation of urethral sling by suprapubic approach Hx of tonsillectomy H/O hand surgery Family History Father Hypertension Heart disease Mother Diabetes Stroke Grandmother Thyroid disease maternal Other Anxiety Denies family history of Colon cancer Ovarian cancer Prostate cancer Hypercholesteremia Breast cancer Uterine cancer Social History Smoking and tobacco/nicotine status: current every day tobacco/nicotine user Female Reproductive History Date of last menstrual period: 08/10/23 Data Anesthesia Cardiac Studies: Echocardiogram 01/22/24 Cardiac Event Monitor 01/29/24
[2024-08-16] VITALS (12 sets, daily range): BP systolic 110–132; BP diastolic 59–73; PULSE 73–102; RESP 15–21; TEMP 36.3–37.4; O2SAT 93–100; BMI 24.0
--- NOTE | 2024-08-16 10:10 | P.ANESUD_ITS ---
Pre-Anesthetic Update Pre-Anesthetic Assessment: Date of Surgery/Procedure: 08/16/24 Preop Juanita gnosis: Postmenopausal bleeding Proposed Procedure: Operation Date: 08/16/24 11:25 Proposed Procedures p Hysteroscopy w/ Myosure 72575, 08722, N95.0(Not Applicable) - Angel Aleman MD s Dilation And Curettage (D&C)(Not Applicable) - Angel Aleman MD Any changes to Pre-Anesthetic Assessment?: No Last Intake: > 8 hrs Exam: Pre-Anes Outpt Exam: alert, oriented x 3, clear to auscultation bilaterally and regular rate & rhythm Cardiac Studies: Echocardiogram 01/22/24 Cardiac Event Monitor 01/29/24
[2024-08-16 10:33] LABS: Bilirubin Urine Negative (Negative); Blood Urine Negative (Negative); Glucose Urine UA Negative (Normal); Ketones Urine Negative (Negative); Leukocyte Esterase Urine Negative (Negative); Nitrate Urine Negative (Negative); Protein Urine Negative (Negative); Urine Appearance Clear (CLEAR); Urine Color Yellow (Yellow); pH Urine 6.5 (5-7)
[2024-08-16 10:36] LABS: OR HCG Qualitative Urine Negative (Negative)
[2024-08-16 10:38] LABS: Add Urine Microscopic? YES; Bacteria Urine Trace /hpf; RBC Urine 0-2 /hpf (0-2); Squamous Epithelial Cell Urine 0-5 /hpf (0-5); WBC Urine 0-5 /hpf (0-5)
[2024-08-16] MEDS: sodium chloride 0.9% 1,000 ML 30 ML IV (11:01)
[2024-08-16] MEDS: scopolamine 1.5 Patch 1 PATCH TRANSDERMA (11:02)
[2024-08-16 11:06] LABS: Basophils # 0.1 10^3/uL (0.0-0.1); Basophils % 0.5 %; Eosinophils % 0.3 %; Hematocrit 40.8 % (36-47); Lymphocytes # 2.1 10^3/uL (0.8-4.8); Lymphocytes % 20.4 %; Mean Corpuscular HGB Conc 34.1 g/dL (30-55); Mean Corpuscular Hemoglobin 30.9 pg (27-33); Mean Corpuscular Volume 90.7 fl (85-98); Mean Platelet Volume 9.7 fL (7.4-10.4); Monocytes # 0.5 10^3/uL (0.2-0.9); Monocytes % 5.1 %; Neutrophils # 7.72 10^3/uL (1.8-7.7); Neutrophils % 73.5 %; Nucleated Red Blood Cells % 0 %; Platelet Count 419 10^3/cmm (157-399)
[2024-08-16] MEDS: midazolam 1 mg/mL INJ 2 mL 2 MG IVP ×2 (11:13→12:43)
[2024-08-16 11:24] LABS: Alanine Aminotransferase 8 U/L (0-33); Albumin Level 4.2 g/dL (3.5-5.2); Alkaline Phosphatase 49 U/L (35-105); Anion Gap 14.9 (5-19); Aspartate Amino Transferase 12 U/L (0-32); Blood Urea Nitrogen 16 mg/dL (6-20); Calcium 8.1 mg/dL (8.5-10.5); Carbon Dioxide 24 mmol/L (22-29); Chloride 105 mmol/L (98-107); Creatinine Clr Calc Pharmacy 67.9697; Globulin 2.6 g/dL (1.3-4.6); Glucose 105 mg/dL (65-115); Osmolality Calculated 292 mOsm/kg (285-295); Potassium 3.9 mmol/L (3.5-5.1); Sodium 140 mmol/L (136-145); Total Bilirubin 0.3 mg/dL (0.15-1.2); Total Protein 6.8 g/dL (6.6-8.7)
--- NOTE | 2024-08-16 15:20 | W.PM.OPSUD ---
Surgery/Procedure H&P Update DATE OF PROCEDURE: August 16, 2024 DATE H&P PERFORMED: 08/08/24 H&P UPDATE INFORMATION: I have reviewed H&P completed within last 30 days, I have examined patient prior to procedure and No changes to prior documentation PREOP DIAGNOSIS: Postmenopausal bleeding PLANNED PROCEDURE: Operation Date: 08/16/24 11:25 Proposed Procedures p Hysteroscopy w/ Myosure 06154, 86880, N95.0(Not Applicable) - Angel Aleman MD s Dilation And Curettage (D&C)(Not Applicable) - Angel Aleman MD
[2024-08-16] MEDS: ceFAZolin 2,000 mg SDV 2000 MG IVP (15:36)
[2024-08-16] MEDS: lidocaine-epi 1% PF 1:200,000 30 mL SDV INJECTION (16:03)
--- NOTE | 2024-08-16 16:20 | P.OP_ITS ---
Operative Report Date of procedure: August 16, 2024 Pre-op diagnosis: Postmenopausal bleeding Post-op diagnosis: same Post-op findings: Atrophic endometrium Procedure done: Hysteroscopy with D&C via MyoSure Specimens removed/disposition: Endometrial curettings Surgeon: Angel Aleman MD Estimated blood loss (mL): 5 IV fluids (mL): 900 Complications: None Findings: Atrophic endometrium Procedure: After informed consent, the risks included but were not limited to bleeding, infection, injury to internal organs. The patient was counseled on a possible laparotomy and on the potential need for hysterectomy. The patient expressed understanding of the risks involved, all questions were answered, and the patient consented to the procedure. The patient was taken to the operating room where general anesthesia was administered. She was placed in the dorsal lithotom y position and prepped and draped in sterile fashion. A time out procedure was performed. The patient was examined under anesthesia and found to have a normal uterus with normal adnexa. A sterile weight speculum was placed in the vagina. The uterus was then gently sounded to 8 cm, and the cervix was dilated. The 0 degrees MyoSure hysteroscope was advanced gently to the uterine fundus while visualizing the monitor. Survey of the uterine cavity showed: Atrophic endometrium, the fundus shows atrophic endometrium; left ostium was visualized, and lateral wall with atrophic endometrium; right ostium visualized, and lateral wall with atrophic endometrium; anterior and posterior bran are with atrophic endometrium; endocervical canal is normal. The MyoSure device was advanced and the direct visualization the endometrium was morcellated without complication. At the end of morcellation the fluid deficit was 250 mL and was estimated at approximately 200 mL were on the floor. There was minimal bleeding noted and the tenaculum removed with goad hemostasis noted. The patient tolerated the procedure well. The patient was taken to the recovery area in stable condition.
[2024-08-16] MEDS: fentaNYL 50 mcg/mL INJ 2mL IVP (16:30)
--- NOTE | 2024-08-16 17:45 | ANE.PACU2 ---
Inpatient post-anesthesia follow up: Airway intact: Yes Vital signs: Temperature 98.0 F Pulse Rate 74 Respiratory Rate 16 Blood Pressure 122/67 Pulse Oximetry 97 Oxygen Delivery Me thod Room Air Oxygen Flow Rate Fraction of Inspir ed Oxygen Hydration adequate: Yes Nausea and vomiting: No Pain level: 1 Mental status: Baseline
== END 2024-08-16 17:48 | disposition home or self-care (01) ==
PROVIDERS: PCP Family Medicine; Visit Provider Obstetrics & Gynecology
PROC: 0UDB8ZZ Extraction of Endometrium, Via Natural or Artificial Opening Endoscopic (ICD-10-PCS; CPT 58558; principal; 2024-08-16 11:15)
PROC: (CPT 58120; 2024-08-16 11:15)
DX: N95.0 Postmenopausal bleeding (principal); N85.8 Other specified noninflammatory disorders of uterus; E03.9 Hypothyroidism, unspecified; K21.9 Gastro-esophageal reflux disease without esophagitis; F41.9 Anxiety disorder, unspecified; F32.A Depression, unspecified; F17.210 Nicotine dependence, cigarettes, uncomplicated
CPT/HCPCS: 58558; 36415; 80053; 81001; 81025; 85025; 86850; 86900; 88305; J0690; J1100; J2250; J2405; J2704; J3010; J7030

== ENCOUNTER 2024-09-08 15:09 | Emergency (ER) | payer MEDICAID, SELFPAY ==
[2024-09-08 15:29] VITALS: BP 132/76; PULSE 97; TEMP 37.3; O2SAT 97; BMI 25.7
--- NOTE | 2024-09-08 15:39 | ED_ITS ---
HPI - Dental/Oral 2 General: Chief complaint: Dental/Oral Stated complaint: Right Jaw Pain Time Seen by Provider: 09/08/24 15:33 Source: patient Mode of arrival: ambulatory Limitations: no limitations History of Present Illness: Patient is a 54-year-old female presents to ED today with a complaint of pain at/under her right jawline over the past several days. Patient feels like she has noticed a small amount of swelling. She was seen earlier this week and placed on prednisone. Patient states she does not feel like this is helping her pain. Patient states she had identical symptoms back in December and was seen here in the emergency department. She had a CT scan performed at that visit. Patient states she feels like she needs another CT scan today. Reports then her symptoms lasted a few weeks before subsiding on their own and she has been asymptomatic since then until this current episode. Patient states she has been evaluated by her dentist and was told that the x-rays of her teeth were unremarkable. She is not having any pain while chewing. She denies any pain at her TMJ. Onset (ago): day(s) Duration: intermittent Severity: severe Relieving factors: nothing Exacerbating factors: nothing Associated symptoms: Reports no associated symptoms; Denies ear or mastoid pain, fever(s) or odynophagia Treatment prior to arrival: other (prednisone ) Related Data Home Medications Medication Instructions Recorded Confirmed pantoprazole 40 mg tablet,delayed 40 mg PO BID 08/17/20 08/31/24 release (Protonix) vilazodone 10 mg tablet (Viibryd) 40 mg PO DAILY 07/26/21 08/31/24 lamotrigine 200 mg tablet 200 mg PO DAILY 07/17/22 08/31/24 cariprazine 3 mg capsule (Vraylar) 3 mg PO DAILY 09/09/22 08/31/24 xdrhpmzyym-pzuugpurfryzx-vpvkpzsk 1 cap PO Q8H PRN headaches 02/04/23 08/31/24 50 mg-300 mg-40 mg capsule (Fioricet) methylphenidate HCl 20 mg tablet 20 mg PO TID 02/04/23 08/31/24 (Ritalin) cholecalciferol (vitamin D3) 50 50 mcg PO DAILY 08/08/24 08/31/24 mcg (2,000 unit) capsule ferrous sulfate 325 mg (65 mg 325 mg PO DAILY 08/08/24 08/31/24 iron) tablet estradiol 1 mg tablet 1.5 mg PO DAILY 08/09/24 08/31/24 levothyroxine 75 mcg tablet 75 mcg PO DAILY 08/09/24 08/31/24 Previous Rx's Medication Instructions Recorded oxybutynin chloride 10 mg 10 mg PO DAILY #90 tabs 03/12/23 tablet,extended release 24 hr medroxyprogesterone 10 mg tablet 10 mg PO DAILY 30 days #30 tabs 06/12/24 ibuprofen 800 mg tablet 800 mg PO TID #90 tabs 07/26/24 acetaminophen 325 mg capsule 325 mg PO Q4H PRN fever or pain 08/16/24 #60 caps ibuprofen 800 mg tablet 800 mg PO TID PRN pain #60 tabs 08/16/24 amoxicillin 875 mg-potassium 1 tab PO BID #14 tabs 09/08/24 clavulanate 125 mg tablet tramadol 50 mg tablet 50 mg PO Q6H PRN pain #14 tabs 09/08/24 Allergies Allergy/AdvReac Type Severity Reaction Status Date / Time bupropion [From Wellbutrin] Allergy Severe rash Verified 09/08/24 15:32 lorazepam [From Ativan] Allergy Severe mood Verified 09/08/24 15:32 swings, angry trazodone Allergy Severe vomiting Verified 09/08/24 15:32 Review of Systems 2 Const: Denies: fever(s), chills, body aches, fatigue or malaise ENMT: Reports: sinus pain (R mandibular pain); Denies: throat pain, uvular edema, enlarged tonsils, odynophagia, hoarseness, mouth pain, swelling of lips/tongue, oral sores, bleeding gums, dental pain, dry mouth, halitosis, ear or mastoid pain, nasal discharge or nasal congestion Card: Denies: chest pain Resp: Denies: dyspnea GI: Denies: nausea or vomiting Musc: Denies: neck pain, back pain, extremity pain, extremity swelling, joint pain or joint swelling Skin/Breast: Denies: rash Neuro: Denies: headache(s), numbness in extremities, weakness in extremities or sensory changes PFSH ED 2 PFSH: Medical History Palpitations Bipolar disorder Hypothyroidism Anxiety Depression Cystitis Mixed stress and urge urinary incontinence Surgical History History of hysteroscopy (~08/16/24) Hysteroscopy D&C with Albino for Postmenopausal bleeding. Negative pathology H/O oral surgery wisdom teeth extraction H/O removal of cyst H/O dilation and curettage H/O breast augmentation Status post creation of urethral sling by suprapubic approach Hx of tonsillectomy H/O hand surgery Family History Father Hypertension Heart disease Mother Diabetes Stroke Grandmother Thyroid disease maternal Other Anxiety Denies family history of Colon cancer Ovarian cancer Prostate cancer Hypercholesteremia Breast cancer Uterine cancer Social History Smoking and tobacco/nicotine status: current every day tobacco/nicotine user Physical Exam 2 Const: COMMON NORMALS: no acute distress, average body habitus, patient oriented x3, no limitations, healthy appearing, alert and well nourished G ENERAL APPEARANCE: cooperative ORIENTATION/CONSCIOUSNESS: Yes awake, Yes oriented to person, Yes oriented to place and Yes oriented to time HENMT: COMMON NORMALS: normocephalic and atraumatic HEAD & SCALP: normal to inspection, normocephalic and atraumatic FACE & SINUS: sinuses nontender and face symmetric; no sinus tenderness, no erythema and no fluctuance FACE & SINUS IMAGES: 1. pain at and just under R body of her mandible; very mild edema noted; no erythema/warmth MOUTH: Normal oral and palatal mucosa present, lip normal, tongue normal and other (floor of mouth is non-elevated and soft); no audible dysphonia and no drooling TEETH & GINGIVA: Yes fair dentition and Yes other (no dental abscess noted) THROAT: posterior oropharynx normal and tonsils normal; no uvular edema Neck/C-Spine: COMMON NORMALS: no lymphadenopathy and Thyroid normal G ENERAL: Yes normal visual inspection, No anterior neck swelling and Yes tender (just under body of R mandible) THYROID: Thyroid normal Neuro: COMMON NORMALS: patient oriented x3 SENSORIUM/ORIENTATION: Yes alert, Yes oriented to person, Yes oriented to place and Yes oriented to time Course 2 Vital Signs: Vital signs: Vital Signs Temperature 99.1 F 12/12/24 15:29 Pulse Rate 87 09/08/24 16:27 Respiratory Rate 18 09/08/24 16:27 Blood Pressure 118/67 09/08/24 16:27 Pulse Oximetry 96 09/08/24 16:27 Oxygen Delivery Me thod Room Air 09/08/24 15:29 MDM - Dental/Oral Medical Decision Making DDx dental neuralgia/infection, submandibular sialoadenitis. I think less likely trigeminal or glossopharyngeal neuralgia. She is already on prednisone. Will add abx coverage and give something for pain. Recommend she follow up with PCP which she states she will do. I do not see any indication for emergent imaging at this time as it would unlikely change management manager. I do not have any suspicion for life threatening etiology at this time. Medical Records I reviewed the patient's medical records. No radiology studies performed this visit Discharge Plan Discharge Patient Disposition: Home Clinical Impression: Mandibular pain Condition: Stable Prescriptions: New tramadol 50 mg tablet 50 mg PO Q6H PRN (Reason: pain) Qty: 14 0RF amoxicillin-pot clavulanate 875-125 mg tablet 1 tab PO BID Qty: 14 0RF No Action pantoprazole [Protonix] 40 mg tablet,delayed release (DR/EC) 40 mg PO BID Viibryd 10 mg tablet 40 mg PO DAILY Rx Instructions: must administer with a meal/food methylphenidate HCl [Ritalin] 20 mg tablet 20 mg PO TID tbstntswuq-gxotohrdmmbmv-jzts [Fioricet] 50-300-40 mg capsule 1 cap PO Q8H PRN (Reason: headaches) medroxyprogesterone 10 mg tablet 10 mg PO DAILY 30 Days Qty: 30 3RF oxybutynin chloride 10 mg tablet extended release 24hr 10 mg PO DAILY Qty: 90 3RF Vraylar 3 mg capsule 3 mg PO DAILY ferrous sulfate 325 mg (65 mg iron) tablet 325 mg PO DAILY cholecalciferol (vitamin D3) 50 mcg (2,000 unit) capsule 50 mcg PO DAILY ibuprofen 800 mg tablet 800 mg PO TID Qty: 90 0RF lamotrigine 200 mg tablet 200 mg PO DAILY levothyroxine 75 mcg tablet 75 mcg PO DAILY Rx Instructions: TAKE 1 TABLET BY MOUTH DAILY estradiol 1 mg tablet 1.5 mg PO DAILY Rx Instructions: 1.5 mg; ibuprofen 800 mg tablet 800 mg PO TID PRN (Reason: pain) Qty: 60 0RF acetaminophen 325 mg capsule 325 mg PO Q4H PRN (Reason: fever or pain) Qty: 60 0RF Discharge Orders: Discharge ED (Routine); Ordered 09/08/24 Ordered By: Juliet Richardson Referrals: Alma Banda DO [Primary Care Provider] - Activity Restrictions/Additional Instructions: Etiologies of your discomfort include salivary gland enlargement/obstruction/infection, dental infection/nerve pain, neuralgia, etc. Continue your steroids as you have already been prescribed. Will add antibiotics and something for pain. You may follow-up with your primary care provider if symptoms do not seem to be improving. You may return to the emergency department for worsening pain, swelling, difficulty swallowing or chewing, fevers, generally feeling worse or unwell, or any other concerns you may have. Coding Level of Care Code ED Web Analytics Developer for Yanick Gupta
[2024-09-08 15:57] VITALS: RESP 18; O2SAT 96
[2024-09-08] MEDS: morphine 4 mg/mL SDV 1 mL IM (15:57)
[2024-09-08 15:58] VITALS: BP 126/67; PULSE 90; O2SAT 97
[2024-09-08 16:27] VITALS: BP 118/67; PULSE 87; RESP 18; O2SAT 96
== END 2024-09-08 16:21 | disposition home or self-care (01) ==
PROVIDERS: Emergency Provider Physician Assistant; PCP Family Medicine
DX: R68.84 Jaw pain (principal); Z72.0 Tobacco use
CPT/HCPCS: 96372; 99284; J2270

== ENCOUNTER 2024-09-13 13:22 | Outpatient (CLI) | payer MEDICAID, SELFPAY ==
--- NOTE | 2024-09-13 13:29 | XRR_ITS ---
PROCEDURE INFORMATION: Exam: XR Soft Tissue Neck Exam date and time: 09/13/2024 1:37 PM Age: 54 years old Clinical indication: Patient HX: Possible swollen lymph node on right side of jaw, jaw pain x 1 wk TECHNIQUE: Imaging protocol: Radiologic exam of the soft tissues of the neck. COMPARISON: MR cervical spin wo con* [id number] 02/19/2023 1:37 PM FINDINGS: Airway: Normal. No abnormal narrowing. Soft tissues: No significant soft tissue pathology. Bones/joints: Multilevel mild listhesis and features of degenerative change are present in the cervical spine also present on prior MRI of 02/19/1023. No acute fracture or dislocation. XR/XR soft tissue neck [id number] IMPRESSION: No soft tissue pathology or acute bony abnormality.
== END 2024-09-13 13:23 | disposition home or self-care (01) ==
LOC: RAD 13:23
PROVIDERS: PCP Family Medicine
DX: R68.84 Jaw pain (principal)
CPT/HCPCS: 70360

== ENCOUNTER 2024-09-30 13:40 | Outpatient (CLI) | payer MEDICAID, SELFPAY ==
--- NOTE | 2024-09-30 13:46 | XRR_ITS ---
PROCEDURE INFORMATION: Exam: XR Lumbosacral Spine Exam date and time: 09/30/2024 1:58 PM Age: 54 years old Clinical indication: Low back pain; Patient HX: HX of bulging disc in lower back x+10 years, recent excruciating pain in lower back; Additional info: Bilateral low back pain TECHNIQUE: Imaging protocol: Radiologic exam of the lumbosacral spine. Views: 2 or 3 views. COMPARISON: CT abdomen pelvis w con* [id number] 06/26/2022 4:47 PM FINDINGS: Bones/joints: Facet arthropathy can be seen at multiple levels. No fracture or subluxation noted. Soft tissues: Unremarkable. XR/XR lumbar spine 2-3V* [id number] IMPRESSION: 1. No acute findings. 2. Multilevel facet arthropathy noted
== END 2024-09-30 13:41 | disposition home or self-care (01) ==
LOC: RAD 13:42
PROVIDERS: PCP Family Medicine; Visit Provider Family Medicine
DX: M46.96 Unspecified inflammatory spondylopathy, lumbar region (principal); M54.42 Lumbago with sciatica, left side; M54.41 Lumbago with sciatica, right side; G89.29 Other chronic pain
CPT/HCPCS: 72100

== ENCOUNTER 2024-10-25 15:22 | Observation (INO) | payer MEDICAID, SELFPAY ==
--- NOTE | 2024-10-19 11:32 | SUR.PREOP ---
1100 pt stated that she wanted her blood work done day of surgery
[2024-10-19 11:46] LABS: Bilirubin Urine Negative (Negative); Blood Urine 3+ (Negative); Glucose Urine UA Negative (Normal); Ketones Urine 2+ (Negative); Leukocyte Esterase Urine Negative (Negative); Nitrate Urine Negative (Negative); Protein Urine Trace (Negative); Specific Gravity, Urine 1.025 (1.005-1.030); Urine Appearance Cloudy (CLEAR); Urine Color Dark Yellow (Yellow); pH Urine 6.5 (5-7)
[2024-10-19 11:51] LABS: Add Urine Microscopic? YES; Bacteria Urine 1+ /hpf; Hyaline Casts Urine 0-4 /lpf; WBC Urine 0-5 /hpf (0-5)
[2024-10-19 12:12] LABS: Add Urine Culture? Yes
--- NOTE | 2024-10-19 14:52 | ANES.PREANE2 ---
Pre-Anesthetic Assessment Height/Weight: Height 5 ft 4 in Preop Diagnosis: Menorrhagia Operation Date: 10/25/24 13:15 Proposed Procedures p Total Vaginal Hysterectomy(Not Applicable) - Angel Aleman MD s Laparoscopic Salpingo Oophorectomy(Bilateral) - Angel Aleman MD Was Beta Malathi taken within 24 hours: N/A Was Clonidine taken within 24 hours: N/A Social No alcohol and No tobacco Exam alert, oriented x 3, clear to auscultation bilaterally and regular rate & rhythm Airway Submandibular: within normal limits Cervical ROM: within normal limits Mallampati: Class III Dentition: full Anesthetic Plan ASA status: 3 Anesthesia: General Other: Patient had a traumatic history of anesthesia, perforated uterus during D&C and procedure was stopped due to thoughts of her having a heart attack IntraOp. Patient was found to have a RBBB. Cardiology has done a full workup on her and cleared her for surgery. She was recently here for D&C and did well. NPO after midnight prior to surgery Hypothyroidism on Synthroid GERD on Protonix Patient is on methylphenidate Cardiac Holter monitor earlier this year showing baseline sinus rhythm with occasional sinus tachycardia Plan for general anesthesia Medications/Allergies Home Medications Medication Instructions Recorded Confirmed Last Taken Type pantoprazole 40 mg tablet,delayed 40 mg PO BID 08/17/20 10/19/24 10/19/24 History release (Protonix) lamotrigine 200 mg tablet 200 mg PO DAILY 07/17/22 10/19/24 10/19/24 History cariprazine 3 mg capsule (Vraylar) 3 mg PO DAILY 09/09/22 10/19/24 10/19/24 History eiclfbualy-dzzhhruhnizev-tweovubn 1 cap PO Q8H PRN headaches 02/04/23 10/19/24 07/10/24 History 50 mg-300 mg-40 mg capsule (Fioricet) methylphenidate HCl 20 mg tablet 20 mg PO TID 02/04/23 10/19/24 10/19/24 History (Ritalin) oxybutynin chloride 10 mg 10 mg PO DAILY #90 tabs 03/12/23 10/19/24 10/19/24 Rx tablet,extended release 24 hr cholecalciferol (vitamin D3) 50 50 mcg PO DAILY 08/08/24 10/19/24 10/19/24 History mcg (2,000 unit) capsule ferrous sulfate 325 mg (65 mg 325 mg PO DAILY 08/08/24 10/19/24 10/19/24 History iron) tablet levothyroxine 75 mcg tablet 75 mcg PO DAILY 08/09/24 10/19/24 10/19/24 History acetaminophen 325 mg capsule 325 mg PO Q4H PRN fever or pain 08/16/24 10/19/24 Unknown Rx #60 caps ibuprofen 800 mg tablet 800 mg PO TID PRN pain #60 tabs 08/16/24 10/19/24 10/05/24 Rx estradiol 1 mg tablet 1 mg PO DAILY #90 tabs 09/12/24 10/19/24 10/19/24 Rx fluoxetine 40 mg capsule 40 mg PO DAILY 10/19/24 10/19/24 10/19/24 History medroxyprogesterone 10 mg tablet 10 mg PO DAILY 10/19/24 10/19/24 10/19/24 History meloxicam 15 mg tablet 15 mg PO DAILY 10/19/24 10/19/24 10/12/24 History Allergies Allergy/AdvReac Type Severity Reaction Status Date / Time bupropion [From Wellbutrin] Allergy Severe rash Verified 10/19/24 10:39 lorazepam [From Ativan] Allergy Severe mood Verified 10/19/24 10:39 swings, angry trazodone Allergy Severe vomiting Verified 10/19/24 10:39 PFSH Anesthesia Medical History Palpitations Bipolar disorder Hypothyroidism Anxiety Depression Cystitis Mixed stress and urge urinary incontinence Surgical History History of hysteroscopy (~08/16/24) Hysteroscopy D&C with Albino for Postmenopausal bleeding. Negative pathology H/O oral surgery wisdom teeth extraction H/O removal of cyst H/O dilation and curettage H/O breast augmentation Status post creation of urethral sling by suprapubic approach Hx of tonsillectomy H/O hand surgery Family History Father Hypertension Heart disease Mother Diabetes Stroke Grandmother Thyroid disease maternal Other Anxiety Denies family history of Colon cancer Ovarian cancer Prostate cancer Hypercholesteremia Breast cancer Uterine cancer Social History Smoking and tobacco/nicotine status: current every day tobacco/nicotine user Data Anesthesia Urine 10/19/24 Range/Units 11:19 Urine Color Dark yellow A (Yellow) Urine Appearance Cloudy A (CLEAR) Urine pH 6.5 (5-7) Ur Specific [place] 1.025 (1.005-1.030) Urine Protein Trace A (Negative) Urine Glucose (UA) Negative (Normal) Urine Ketones 2+ H (Negative) Urine Nitrate Negative (Negative) Urine Bilirubin Negative (Negative) Ur Leukocyte Esterase Negative (Negative) Urine RBC 6-10 (0-2) /hpf Urine WBC 0-5 (0-5) /hpf Cardiac Studies: Echocardiogram 01/22/24 Cardiac Event Monitor 01/29/24
[2024-10-25] VITALS (14 sets, daily range): BP systolic 117–140; BP diastolic 62–89; PULSE 63–96; RESP 10–21; TEMP 36.3–36.8; O2SAT 95–100; BMI 25.7
[2024-10-25 11:22] LABS: OR HCG Qualitative Urine Negative (Negative)
[2024-10-25] MEDS: sodium chloride 0.9% 1,000 ML 30 ML IV (11:28)
[2024-10-25] MEDS: ceFAZolin 2,000 mg SDV 2000 MG IVP (11:30)
[2024-10-25 11:33] LABS: Basophils % 0.3 %; Hematocrit 41.7 % (36-47); Lymphocytes # 2.4 10^3/uL (0.8-4.8); Lymphocytes % 21.8 %; Mean Corpuscular HGB Conc 34.1 g/dL (30-55); Mean Corpuscular Hemoglobin 30.2 pg (27-33); Mean Corpuscular Volume 88.7 fl (85-98); Monocytes # 0.6 10^3/uL (0.2-0.9); Monocytes % 5.3 %; Neutrophils # 7.89 10^3/uL (1.8-7.7); Neutrophils % 72.3 %; Nucleated Red Blood Cells % 0 %; Platelet Count 419 10^3/cmm (157-399); Red Cell Distribution Width 12.7 % (12.1-15.1); White Blood Count 10.91 10^3/uL (3.29-11.43)
[2024-10-25] MEDS: metroNIDAZOLE IV 500 MG/100 ML PREMIX 100 MG IV (11:38)
[2024-10-25] MEDS: ondansetron 2 mg/ML SDV 2 mL 4 MG IVP (11:39)
--- NOTE | 2024-10-25 11:42 | W.PM.OPSUD ---
Surgery/Procedure H&P Update DATE OF PROCEDURE: October 25, 2024 DATE H&P PERFORMED: 10/17/24 H&P UPDATE INFORMATION: I have reviewed H&P completed within last 30 days, I have examined patient prior to procedure and No changes to prior documentation PREOP DIAGNOSIS: Uterine fibroid, postmenopausal bleeding PLANNED PROCEDURE: Operation Date: 10/25/24 12:35 Proposed Procedures p Total Vaginal Hysterectomy(Not Applicable) - Angel Aleman MD s Laparoscopic Salpingo Oophorectomy(Bilateral) - Angel Aleman MD
[2024-10-25] MEDS: scopolamine 1 mg PATCH 1 PATCH TRANSDERMA (11:44)
[2024-10-25 11:52] LABS: Alanine Aminotransferase 17 U/L (0-33); Albumin Level 4.5 g/dL (3.5-5.2); Alkaline Phosphatase 62 U/L (35-105); Anion Gap 17.8 (5-19); Aspartate Amino Transferase 16 U/L (0-32); Blood Urea Nitrogen 15 mg/dL (6-20); Calcium 9.3 mg/dL (8.5-10.5); Carbon Dioxide 22 mmol/L (22-29); Chloride 103 mmol/L (98-107); Creatinine Clr Calc Pharmacy 89.1005; Globulin 3.2 g/dL (1.3-4.6); Glomerular Filtration Rate 87.9 mL/min (90-130); Glucose 124 mg/dL (65-115); Osmolality Calculated 290 mOsm/kg (285-295); Potassium 3.8 mmol/L (3.5-5.1); Sodium 139 mmol/L (136-145); Total Bilirubin 0.3 mg/dL (0.15-1.2); Total Protein 7.7 g/dL (6.6-8.7)
--- NOTE | 2024-10-25 11:56 | P.ANESUD_ITS ---
Pre-Anesthetic Update Pre-Anesthetic Assessment: Date of Surgery/Procedure: 10/25/24 Preop Juanita gnosis: Uterine fibroid, postmenopausal bleeding Proposed Procedure: Operation Date: 10/25/24 12:35 Proposed Procedures p Total Vaginal Hysterectomy(Not Applicable) - Angel Aleman MD s Laparoscopic Salpingo Oophorectomy(Bilateral) - Angel Aleman MD Any changes to Pre-Anesthetic Assessment?: No Last Intake: Intake Last Liquid Date 10/24/24 Last Liquid Time 21:00 Last Solid Date 10/24/24 Last Solid Time 21:00 Labs Last 48hrs: Short CBC 10/25/24 Range/Units 11:15 WBC 10.91 (3.29-11.43) 10^ 3/uL Hgb 14.20 (11.27-16.99) g/ dL Hct 41.7 (36-47) % MCV 88.7 (85-98) fl Plt Count 419 H (157-399) 10^3/c mm Neut % (Auto) 72.3 % Neut # (Auto) 7.89 H (1.8-7.7) 10^3/u L BMP 10/25/24 11:15 Sodium 139 Potassium 3.8 Chloride 103 Carbon Dioxide 22 BUN 15 Creatinine 0.7 Glucose 124 H Calcium 9.3 Liver Function 10/25/24 Range/Units 11:15 Total Bilirubin 0.3 (0.15-1.2) mg/dL AST 16 (0-32) U/L ALT 17 (0-33) U/L Alkaline Phosphata se 62 (35-105) U/L Albumin 4.5 (3.5-5.2) g/dL Vitals: Temperature 97.4 F L 10/25/24 11:07 Temperature Source Temporal Artery S can 10/25/24 11:07 Pulse Rate 95 10/25/24 11:07 Respiratory Rate 16 10/25/24 11:07 Blood Pressure 126/89 10/25/24 11:07 Blood Pressure Laura n 101 10/25/24 11:07 Pulse Oximetry 95 10/25/24 11:07 Oxygen Delivery Me thod Room Air 10/25/24 11:07 Exam: Pre-Anes Outpt Exam: alert, oriented x 3, clear to auscultation bilaterally and regular rate & rhythm Cardiac Studies: Echocardiogram 01/22/24 Cardiac Event Monitor 01/29/24
[2024-10-25] MEDS: lidocaine-epi 2% PF 1:200,000 20 mL SDV INJECTION (14:40)
--- NOTE | 2024-10-25 15:22 | W.PM.BPON ---
Date of Procedure: 10/25/24 Surgeon: Angel Aleman MD Foreign Exchange Student Coordinator(s): Procedure(s) performed: Total vaginal Findings of the procedure(s): Enlarged uterus Estimated blood loss: 80 Specimen(s) removed: Uterus Post-operative diagnosis: Status post vaginal history
--- NOTE | 2024-10-25 15:23 | PM.OP ---
Operative Report Date of procedure: October 25, 2024 Pre-op diagnosis: Fibroid uterus Post-op diagnosis: same Procedure done: Total vaginal hysterectomy Bilateral salpingectomy Specimens removed/disposition: Uterus Left and right fallopian tubes Surgeon: Angel Aleman MD Estimated blood loss (mL): 80 IV fluids (mL): 900 Urine output (mL): 50 Complications: None Findings: Enlarged uterus Procedure: After informed consent and risks, benefits, indications and alternatives reviewed with the patient was taken to the operating room. The patient was placed in dorsal lithotomy position prepped, and draped in the usual sterile fashion. The pre-procedure timeout verifying the correct patient, procedure, site and side, could not requirements was performed and acknowledge by the OR team. A Murguia catheter was placed. A Bookwalter vaginal retractor was placed into the vagina in usual manner visualize the cervix. Cervix was grasped with a single tooth tenaculum and circumferentially infiltrated with 2% lidocaine with epinephrine. Then cervix was circumferentially incised with bovie and the bladder was dissected off the pubovesical cervical fascia anteriorly with a sponge stick and Metzenbaum scissors. The anterior peritoneal reflection was identified and the anterior cul-de-sac was entered sharply with Metzenbaum scissors. The same procedure was performed posteriorly and a posterior colpotomy was made through the posterior cul-de-sac space without difficulty and the posterior blade of the Bookwalter vaginal retractor was advanced posteriorly into the cul-de-sac. At this time, the left and right uterosacral ligaments were isolated and ligated with 0 Vicryl. The LigaSure device was placed over the uterosacral ligaments on either side and was then used in a serial fashion up through the cardinal ligaments bilaterally cross-clamped, cut, and sealed with the LigaSure device. Finally, the uterine arteries were cross-clamped, cut, sealed and ligated with the LigaSure device. Hemostasis was assured. The broad ligaments were then serially clamped, sealed and cut with the LigaSure device on both sides. Excellent hemostasis was visualized. Both cornua were clamped, sealed and cut with the LigaSure device. Then the pedicles were then suture ligated with excellent hemostasis. The uterus was excised and submitted for pathologic evaluation. No other abnormalities were noted in the pelvic cavity. Then the right side Infundibular ligament was identified. The ureter was confirmed along the pelvic side wall and peristalsis was noted. The LigaSure device was then used to clamp, sealed and transcepted the right fallopian tube, again being sure to be clear of the ureter the fallopian tube was removed. The same process was then repeated on the left side. Good hemostasis was assure on both sides. The peritoneum was then closed in a pursestring fashion with 0 Vicryl suture. The vaginal cuff angles were closed with [id number] #0 Vicryl suture on both sides and transfixed with the ipsilateral cardinal and uterosacral ligaments. The remainder of the vaginal cuff was closed with #0 Vicryl in a running locked fashion. At this time, instruments were removed from the vagina at hemostasis assured. Murguia catheter was then noted yielding clear eugene urine. The patient was taken out of dorsal lithotomy position and awakened from the general anesthesia. The patient tolerated the procedure well and was taken to the PACU recovery room in a stable condition. Sponge, lap, needle and instruments counts were correct x3.
--- NOTE | 2024-10-25 16:00 | ANE.PACU2 ---
Inpatient post-anesthesia follow up: Airway intact: Yes Vital signs: Temperature 97.9 F Pulse Rate 80 Respiratory Rate 16 Blood Pressure 115/82 Pulse Oximetry 98 Oxygen Delivery Me thod Room Air Oxygen Flow Rate Fraction of Inspir ed Oxygen Hydration adequate: Yes Nausea and vomiting: No Pain level: 1 Mental status: Baseline
--- NOTE | 2024-10-25 16:17 | PC.NURSE ---
1610 - accepted into room 12 with x2 RNs at side - BP 136/80 - pulse 74 - 02 100% RA tempt 99.4 - no distress noted upon this nurse exiting pts room
[2024-10-25] MEDS: HYDROcodone-acetaminophen 5-325 mg Tablet PO ×2 (16:35→22:40)
[2024-10-25] MEDS: dextrose 5%-lactated ringers 1,000 ML 125 ML IV (16:36)
[2024-10-25] MEDS: docusate sodium 100 mg Capsule PO (18:18)
[2024-10-25] MEDS: pantoprazole DR 40 mg Tablet PO (19:00)
[2024-10-25] MEDS: simethicone 80 mg Chew PO (21:40)
[2024-10-25] MEDS: ketorolac 30 mg/mL INJ IVP (21:41)
[2024-10-25] MEDS: lamoTRIgine 100 mg Tablet 200 MG PO (21:41)
[2024-10-25] MEDS: fluoxetine 20 mg Capsule 40 MG PO (21:41)
[2024-10-26] VITALS: BP 93/48; PULSE 84; RESP 18; TEMP 36.8; O2SAT 97
[2024-10-26] MEDS: dextrose 5%-lactated ringers 1,000 ML 125 ML IV (00:29)
[2024-10-26 05:00] VITALS: BP 105/62; PULSE 79; RESP 18; TEMP 36.8; O2SAT 97
[2024-10-26] MEDS: ketorolac 30 mg/mL INJ IVP (05:41)
[2024-10-26 06:02] LABS: Hematocrit 37.4 % (36-47); Mean Corpuscular HGB Conc 32.9 g/dL (30-55); Mean Corpuscular Hemoglobin 30.5 pg (27-33); Mean Corpuscular Volume 92.8 fl (85-98); Mean Platelet Volume 10.3 fL (7.4-10.4); Platelet Count 358 10^3/cmm (157-399); Red Blood Count 4.03 10^6/uL (3.85-5.65); Red Cell Distribution Width 12.9 % (12.1-15.1); White Blood Count 10.99 10^3/uL (3.29-11.43)
[2024-10-26] MEDS: estradiol 1 mg Tablet PO (09:16)
[2024-10-26] MEDS: ferrous sulfate EC 325 mg Tablet PO (09:16)
[2024-10-26] MEDS: levothyroxine 75 mcg Tablet PO (09:16)
[2024-10-26] MEDS: oxybutynin 5 mg Tablet 10 MG PO (09:16)
[2024-10-26] MEDS: methylphenidate 10 mg Tablet 20 MG PO (09:17)
[2024-10-26] MEDS: pantoprazole DR 40 mg Tablet PO (09:17)
[2024-10-26] MEDS: docusate sodium 100 mg Capsule PO (09:17)
[2024-10-26] MEDS: cholecalciferol (vitamin D3) 1,000 unit Tablet 2000 UNIT PO (09:17)
--- NOTE | 2024-10-26 09:26 | P.DS_ITS ---
Discharge Providers [employer] Date of Admission: 10/25/24 15:22 Date of Discharge: 10/26/24 Attending Provider at Admission: Angel Aleman MD Attending Provider at Discharge: Angel Aleman MD Primary Care Provider: Alma Banda DO Reason for Visit 2 Reason for Visit: N95.0 Hospital Course Hospital Course Mrs. Rothman 54-year-old female G3, P2 with a history of uterine fibroid, pelvic pain and abnormal uterine bleeding. Admitted for planned total vaginal hysterectomy. The procedure was performed without complication. She is afebrile and hemodynamically stable postoperative day 1. Overnight observation was uneventful. Tolerating diet well. Ambulating without difficulty. She was counseled regarding pelvic rest for 6 weeks (no sex, no tampons, no vaginal douches). Return to the emergency room if any fever, increased bleeding or pain. Physical Exam Narrative: GA: Alert and oriented ?3. HEENT: WNL. Heart: Regular rate and rhythm. Lungs: Clear to auscultation bilaterally. Abdomen: Bowel sounds present, nontender. ASSISTANT OFFSET PRESS OPERATOR: spotting bleeding. Extremities: No edema, no cyanosis, no calves pain. Urinary Catheter Management: Murguia: Cath Placed During This Visit: yes, but has since been removed by the nurse Reason for Continuing Indwelling Catheter: Decision to DC Catheter Urinary Catheter Date of Insertion: 10/25/24 Urinary Catheter Time of Insertion: 14:32 Date Urinary Catheter Removed: 10/26/24 Time Urinary Catheter Discontinued: 05:52 History History History 3 Term 2 0 Miscarriages/Ectopic 1 Living Children 2 Discharge Data Studies Completed and Pending Pending at discharge Category Date Time Status Pathology: Surgical [PTH] Routine Pth 10/25/24 15:04 Received Laboratory Results WBC 10.99 10^3/uL (3.29-11.43) 10/26/24 05:50 RBC 4.03 10^6/uL (3.85-5.65) 10/26/24 05:50 Hgb 12.30 g/dL (11.27-16.99) 10/26/24 05:50 Hct 37.4 % (36-47) 10/26/24 05:50 MCV 92.8 fl (85-98) 10/26/24 05:50 MCH 30.5 pg (27-33) 10/26/24 05:50 MCHC 32.9 g/dL (30-55) 10/26/24 05:50 RDW 12.9 % (12.1-15.1) 10/26/24 05:50 Plt Count 358 10^3/cmm (157-399) 10/26/24 05:50 MPV 10.3 fL (7.4-10.4) 10/26/24 05:50 Neut % (Auto) 72.3 % 10/25/24 11:15 Lymph % (Auto) 21.8 % 10/25/24 11:15 [place] % (Auto) 5.3 % 10/25/24 11:15 Eos % (Auto) 0.0 % 10/25/24 11:15 Baso % (Auto) 0.3 % 10/25/24 11:15 Neut # (Auto) 7.89 10^3/uL (1.8-7.7) H 10/25/24 11:15 Lymph # (Auto) 2.4 10^3/uL (0.8-4.8) 10/25/24 11:15 [place] # (Auto) 0.6 10^3/uL (0.2-0.9) 10/25/24 11:15 Eos # (Auto) 0.0 10^3/uL (0.0-0.8) 10/25/24 11:15 Baso # (Auto) 0.0 10^3/uL (0.0-0.1) 10/25/24 11:15 Nucleated RBC % (auto) 0 % 10/25/24 11:15 Nucleated RBCs # 0.0 /100WBC 10/25/24 11:15 Sodium 139 mmol/L (136-145) 10/25/24 11:15 Potassium 3.8 mmol/L (3.5-5.1) 10/25/24 11:15 Chloride 103 mmol/L (98-107) 10/25/24 11:15 Carbon Dioxide 22 mmol/L (22-29) 10/25/24 11:15 Anion Gap 17.8 (5-19) 10/25/24 11:15 BUN 15 mg/dL (6-20) 10/25/24 11:15 Creatinine 0.7 mg/dL (0.5-0.9) 10/25/24 11:15 GFR Calculation 87.9 mL/min (90-130) L 10/25/24 11:15 Glucose 124 mg/dL (65-115) H 10/25/24 11:15 Calculated Osmolality 290 mOsm/kg (285-295) 10/25/24 11:15 Calcium 9.3 mg/dL (8.5-10.5) 10/25/24 11:15 Total Bilirubin 0.3 mg/dL (0.15-1.2) 10/25/24 11:15 AST 16 U/L (0-32) 10/25/24 11:15 ALT 17 U/L (0-33) 10/25/24 11:15 Alkaline Phosphatase 62 U/L (35-105) 10/25/24 11:15 Total Protein 7.7 g/dL (6.6-8.7) 10/25/24 11:15 Albumin 4.5 g/dL (3.5-5.2) 10/25/24 11:15 Globulin 3.2 g/dL (1.3-4.6) 10/25/24 11:15 Urine Color Dark yellow (Yellow) A 10/19/24 11:19 Urine Appearance Cloudy (CLEAR) A 10/19/24 11:19 Urine pH 6.5 (5-7) 10/19/24 11:19 Ur Specific [place] 1.025 (1.005-1.030) 10/19/24 11:19 Urine Protein Trace (Negative) A 10/19/24 11:19 Urine Glucose (UA) Negative (Normal) 10/19/24 11:19 Urine Ketones 2+ (Negative) H 10/19/24 11:19 Urine Blood 3+ (Negative) A 10/19/24 11:19 Urine Nitrate Negative (Negative) 10/19/24 11:19 Urine Bilirubin Negative (Negative) 10/19/24 11:19 Urine Urobilinogen 1.0 mg/dL (Negative) 10/19/24 11:19 Ur Leukocyte Esterase Negative (Negative) 10/19/24 11:19 Urine RBC 6-10 /hpf (0-2) 10/19/24 11:19 Urine WBC 0-5 /hpf (0-5) 10/19/24 11:19 Ur Squamous Epith Cells 6-10 /hpf (0-5) 10/19/24 11:19 Amorphous Sediment Not Reportable 10/19/24 11:19 Urine Bacteria 1+ /hpf (NONE) H 10/19/24 11:19 Hyaline Casts 0-4 /lpf H 10/19/24 11:19 Urine Yeast Trace /hpf 10/19/24 11:19 Urine HCG, Qual Negative (Negative) 10/25/24 10:50 Blood Type A Positive 10/25/24 11:15 Rho(D) Type Rh positive 10/25/24 11:15 Antibody Screen Negative 10/25/24 11:15 Procedures Performed Total vaginal hysterectomy Bilateral salpingectomy Vitals Last Vital Signs Temp 98.2 F 10/26/24 05:00 Pulse 79 10/26/24 05:00 Resp 18 10/26/24 05:00 BP 105/62 10/26/24 05:00 Pulse Ox 97 10/26/24 05:00 O2 Del Method Room Air 10/26/24 05:00 Results Labs OB ([facility]): Blood Type A Positive 10/25/24 Antibody Screen Negative 10/25/24 Hct 37.4 % (36-47) 10/26/24 Hgb 12.30 g/dL (11.27-16.99) 10/26/24 Rho(D) Type Rh positive 10/25/24 Plt Count 358 10^3/cmm (157-399) 10/26/24 TSH 2.88 uIU/mL (0.27-4.20) 06/15/24 Free T4 1.37 ng/dL (0.82-1.77) 06/15/24 FSH 60.1 mIU/mL 03/10/24 Micro Urine Specimen 10/19/24 Prolactin 14.30 ng/mL (4.8-23.3) 10/29/23 Discharge Plan Discharge Patient Disposition: Home Condition: Stable Prescriptions: New hydrocodone-acetaminophen 5-325 mg tablet 1 tab PO Q4H PRN (Reason: pain) Qty: 20 0RF acetaminophen 325 mg capsule 325 mg PO Q4H PRN (Reason: fever or pain) Qty: 60 0RF ibuprofen 800 mg tablet 800 mg PO TID PRN (Reason: pain) Qty: 60 0RF Continued pantoprazole [Protonix] 40 mg tablet,delayed release (DR/EC) 40 mg PO BID methylphenidate HCl [Ritalin] 20 mg tablet 20 mg PO TID [id number] [Fioricet] 50-300-40 mg capsule 1 cap PO Q8H PRN (Reason: headaches) oxybutynin chloride 10 mg tablet extended release 24hr 10 mg PO DAILY Qty: 90 3RF Vraylar 3 mg capsule 3 mg PO DAILY ferrous sulfate 325 mg (65 mg iron) tablet 325 mg PO DAILY cholecalciferol (vitamin D3) 50 mcg (2,000 unit) capsule 50 mcg PO DAILY estradiol 1 mg tablet 1 mg PO DAILY Qty: 90 3RF Rx Instructions: 1 mg; lamotrigine 200 mg tablet 200 mg PO DAILY levothyroxine 75 mcg tablet 75 mcg PO DAILY Rx Instructions: TAKE 1 TABLET BY MOUTH DAILY ibuprofen 800 mg tablet 800 mg PO TID PRN (Reason: pain) Qty: 60 0RF acetaminophen 325 mg capsule 325 mg PO Q4H PRN (Reason: fever or pain) Qty: 60 0RF fluoxetine 40 mg Capsule 40 mg PO DAILY meloxicam 15 mg Tablet 15 mg PO DAILY medroxyprogesterone 10 mg tablet 10 mg PO DAILY Rx Instructions: TAKE 1 TABLET BY MOUTH DAILY Discharge Orders: Discharge Order (Routine); Ordered 10/26/24 Ordered By: Angel Aleman Referrals: Angel Aleman MD [Physician] - Jen Xiao APN, WHNP [Nurse Practitioner] - Discharge Diet: Usual diet Discharge Activity: Limit activity as instructed Patient Instructions: Acute Wound Care (DC), Opioid Safety (GEN), Vaginal Hysterectomy (GEN), OB Discharge Report, OB Food/Drug Interaction Guide, Opioid Safety, Post Anesthesia Care Activity Restrictions/Additional Instructions: 1. Please call [facility] on next working day to make your post-operative appointment in 2 weeks. 2. Please stay home until you come back to the clinic on first post- hospatilization check up. 3. Please follow instructions on your medications CAREFULLY. 4. If you have abdominal incision, do not cover it unless dressing is necessary because of drainage. OK to shower, but avoid bath. Leave steri-strips until they fall off. If they are still on one week after surgery, you may remove them. 5. If you had vaginal surgery or vaginal repair, Dr. Aleman may instruct you to take SITZ bath. 6. Yellow, blood tinged odorous vaginal discharge is usually normal after hysterectomy or vaginal surgeries. 7. No SEXUAL INTERCOURSE, tampons, or douches until you are completely released from the post-operative care. 8. Avoid constipation by eating right and maybe using some Metamucil or Milk of Magnesia. 9. All prescription refills are given during the working hours. Please do no wait till it runs out. Call the clinic at [phone] before your medication runs out. The clinic will get in touch with your doctor to prescribe medications if necessary. 10. Please remain within 40 mile radius from our hospital because emergencies do happen now and then during the post-operative period. 11. If you have stairs at home, take one step at a time slowly and minimize the number of trips. It helps to stay in one floor for the next few days. No lifting except what you can lift by one hand until you are released from the post-operative care. 12. Driving is discouraged until you are well healed. It may be 3-4 weeks before you feel strong enough to drive. You should be able to turn and look through the rear window without pain and you should be able to push the brake pedal very hard without pain before you drive. No fast rules, but SAFETY should be your primary concern. DO NOT drive if you are on sedating medications such as narcotics. 13. Call the clinic (during working hours) to make urgent appointment or go to the Emergency room, if any of the following occurs: i. Vaginal bleeding becomes heavy, more than a period. ii. Incision becomes red and sore, or drains pus. iii. Your TEMPERATURE is over 100.4F or you have chill. iv. IV site becomes red and swollen (a little ``knot?? is usually OK) v. Persistent nausea and vomiting vi. Persistent constipation or diarrhea vii. Rash or allergic reaction to medications. Discharge Attestations [employer] Time Spent in Discharge Care*: greater than 30 min Coding Level of Care Code Acute Code for Chg Candy
[2024-10-26 10:00] VITALS: BP 115/82; PULSE 80; RESP 16; TEMP 36.6; O2SAT 98
[2024-10-26] MEDS: ibuprofen 800 mg tablet PO (10:26)
== END 2024-10-26 10:35 | disposition home or self-care (01) ==
LOC: OBGYN 15:23
PROVIDERS: Admitting Provider Obstetrics & Gynecology; PCP Family Medicine; Visit Provider Obstetrics & Gynecology
PROC: (CPT 58262; principal; 2024-10-25 12:25)
PROC: (CPT 58720; 2024-10-25 12:25)
DX: D25.1 Intramural leiomyoma of uterus (principal); F41.9 Anxiety disorder, unspecified; F32.A Depression, unspecified; N87.9 Dysplasia of cervix uteri, unspecified; N88.8 Other specified noninflammatory disorders of cervix uteri; E03.9 Hypothyroidism, unspecified; K21.9 Gastro-esophageal reflux disease without esophagitis; Z79.899 Other long term (current) drug therapy; Z79.890 Hormone replacement therapy; Z88.8 Allergy status to other drugs, medicaments and biological substances; F17.200 Nicotine dependence, unspecified, uncomplicated
CPT/HCPCS: 58262; 36415; 80053; 81001; 81025; 85025; 85027; 86850; 86900; 87086; 88307; A4216; G0378; J0131; J0690; J1100; J1885; J2405; J2704; J3010; J3490; J7030; J7121; J8499

== ENCOUNTER 2024-11-21 14:38 | Outpatient (CLI) | payer MEDICAID, SELFPAY ==
[2024-11-21 15:30] LABS: Basophils # 0.1 10^3/uL (0.0-0.1); Basophils % 0.7 %; Eosinophils # 0.1 10^3/uL (0.0-0.8); Eosinophils % 0.7 %; Hematocrit 38.1 % (36-47); Lymphocytes # 2.5 10^3/uL (0.8-4.8); Lymphocytes % 28.2 %; Mean Corpuscular HGB Conc 33.6 g/dL (30-55); Mean Corpuscular Hemoglobin 30.2 pg (27-33); Mean Corpuscular Volume 89.9 fl (85-98); Mean Platelet Volume 9.9 fL (7.4-10.4); Monocytes # 0.6 10^3/uL (0.2-0.9); Monocytes % 6.3 %; Neutrophils % 63.9 %; Nucleated Red Blood Cells % 0 %; Platelet Count 416 10^3/cmm (157-399); Red Blood Count 4.24 10^6/uL (3.85-5.65); Red Cell Distribution Width 12.7 % (12.1-15.1); White Blood Count 8.91 10^3/uL (3.29-11.43)
[2024-11-21 16:10] LABS: Alanine Aminotransferase 17 U/L (0-33); Albumin Level 4.2 g/dL (3.5-5.2); Alkaline Phosphatase 69 U/L (35-105); Anion Gap 14.9 (5-19); Aspartate Amino Transferase 16 U/L (0-32); Blood Urea Nitrogen 22 mg/dL (6-20); Calcium 8.8 mg/dL (8.5-10.5); Carbon Dioxide 23 mmol/L (22-29); Chloride 103 mmol/L (98-107); Globulin 2.7 g/dL (1.3-4.6); Glucose 123 mg/dL (65-115); Iron 122 ug/dL (37-145); Osmolality Calculated 289 mOsm/kg (285-295); Percent Saturation 43.2 % (20-50); Potassium 3.9 mmol/L (3.5-5.1); Sodium 137 mmol/L (136-145); Thyroid Stimulating Hormone 4.13 uIU/mL (0.27-4.20); Total Bilirubin 0.2 mg/dL (0.15-1.2); Total Iron Binding Capacity 282 mcg/dl; Total Protein 6.9 g/dL (6.6-8.7); Unsaturated Iron Binding 160 ug/dL (112-347)
== END 2024-11-21 14:39 | disposition home or self-care (01) ==
LOC: LAB 15:13
PROVIDERS: PCP Family Medicine; Visit Provider Family Medicine
DX: E03.4 Atrophy of thyroid (acquired) (principal); F41.0 Panic disorder [episodic paroxysmal anxiety]; E78.2 Mixed hyperlipidemia; G44.209 Tension-type headache, unspecified, not intractable; D64.9 Anemia, unspecified; G25.81 Restless legs syndrome
CPT/HCPCS: 36415; 80053; 83540; 83550; 84443; 85025

== ENCOUNTER → 2024-12-14 15:01 | Outpatient (BNVA) | payer MEDICAID, SELFPAY | PROVIDERS: PCP Family Medicine; Visit Provider Emergency Medicine | DX: R07.89 Other chest pain (principal) | CPT/HCPCS: 71046 ==

== ENCOUNTER 2025-01-03 02:10 | Emergency (ER) | payer MEDICAID, SELFPAY ==
[2025-01-03] VITALS (7 sets, daily range): BP systolic 129–147; BP diastolic 68–84; PULSE 76–95; RESP 15–18; TEMP 36.8; O2SAT 95–98; BMI 23.3
--- NOTE | 2025-01-03 02:19 | ECG_ITS ---
[facility] Date: 2025-01-03 Pat Name: Britta Rothman Department: Room: Gender: Female Application Architect: : 1970 Requested By: Jackson Gonzalez Order Number: [id number] Reading MD: Annie Perez M.D. Measurements Intervals [place] Rate: 87 P: 61 HI: 150 QRS: 27 QRSD: 119 T: 99 QT: 395 QTc: 478 Interpretive Statements SINUS RHYTHM LOW QRS VOLTAGE IN PRECORDIAL LEADS [QRS DEFLECTION < 1.0 mV IN CHEST LEADS] ANTEROSEPTAL MYOCARDIAL INFARCTION , OF INDETERMINATE AGE [40+ ms Q WAVE IN V1-V4] INTERPRETATION BASED ON A DEFAULT AGE OF 40 YEARS Compared to ECG 10/22/2023 21:12:47 No significant changes Electronically Signed On 01-03-2025 18:50:59 CDT by Annie Perez M.D. [email or web address] [id number]
--- NOTE | 2025-01-03 02:19 | XRR_ITS ---
PROCEDURE INFORMATION: Exam: XR Chest Exam date and time: 01/03/2025 2:37 AM Age: 54 years old Clinical indication: Chest pressure and chest wall pain; Additional info: Chest pain TECHNIQUE: Imaging protocol: Radiologic exam of the chest. Views: 1 view. COMPARISON: CR XR chest 2V* [id number] 12/14/2024 3:08 PM FINDINGS: Lungs: Unremarkable. No consolidation. Pleural spaces: Unremarkable. No pleural effusion. No pneumothorax. Heart/Mediastinum: Unremarkable. No cardiomegaly. Bones/joints: Unremarkable. XR/XR chest 1V portable [id number] IMPRESSION: No visualized acute cardiopulmonary process.
--- NOTE | 2025-01-03 02:24 | W.ED.CHESTPA ---
HPI - Chest Pain General: Chief Complaint: Chest Pain Stated Complaint: CHest Pain Time Seen by Provider: 01/03/25 02:24 History of Present Illness: Patient presents to the ER with complaints of left lateral chest wall pain worse when she takes a big deep breath or bends over to the left side. Patient says she had pleurisy about 10 days ago got diagnosed with by her PCP and was put on antibiotics and steroids and she finished them 3 days ago. Patient states she is to feel like she is getting a bit worse. Patient also worried about a blood clot. She had surgery back in September and has not been as mobile since then as she normally is. Related Data Home Medications ?Medication ?Instructions ?Recorded ?Confirmed pantoprazole 40 mg tablet,delayed 40 mg PO BID 08/17/20 12/14/24 release (Protonix) lamotrigine 200 mg tablet 200 mg PO DAILY 07/17/22 12/14/24 cariprazine 3 mg capsule (Vraylar) 3 mg PO DAILY 09/09/22 12/14/24 [id number]-[id number]-[id number] 1 cap PO Q8H PRN headaches 02/04/23 12/14/24 50 mg-300 mg-40 mg capsule (Fioricet) methylphenidate HCl 20 mg tablet 20 mg PO TID 02/04/23 12/14/24 (Ritalin) cholecalciferol (vitamin D3) 50 50 mcg PO DAILY 08/08/24 12/14/24 mcg (2,000 unit) capsule ferrous sulfate 325 mg (65 mg 325 mg PO DAILY 08/08/24 12/14/24 iron) tablet levothyroxine 75 mcg tablet 75 mcg PO DAILY 08/09/24 12/14/24 fluoxetine 40 mg capsule 40 mg PO DAILY 10/19/24 12/14/24 Previous Rx's ?Medication ?Instructions ?Recorded oxybutynin chloride 10 mg 10 mg PO DAILY #90 tabs 03/12/23 tablet,extended release 24 hr estradiol 1 mg tablet 1 mg PO DAILY #90 tabs 09/12/24 acetaminophen 325 mg capsule 325 mg PO Q4H PRN fever or pain 10/26/24 #60 caps ibuprofen 800 mg tablet 800 mg PO TID PRN pain #60 tabs 10/26/24 amoxicillin 875 mg-potassium 1 tab PO BID 10 days #20 tabs 12/14/24 clavulanate 125 mg tablet prednisone 20 mg tablet 40 mg (2 x 20 mg) PO DAILY 5 days 12/14/24 #10 tabs Allergies Allergy/AdvReac Type Severity Reaction Status Date / Time bupropion (From Wellbutrin) Allergy Severe rash Verified 12/14/24 14:31 lorazepam (From Ativan) Allergy Severe mood Verified 12/14/24 14:31 swings, angry trazodone Allergy Severe vomiting Verified 12/14/24 14:31 Review of Systems General: Reports: 10 or more systems reviewed and unremarkable except in HPI and below PFSH ED PFSH: Medical History Palpitations Bipolar disorder Hypothyroidism Anxiety Depression Cystitis Mixed stress and urge urinary incontinence Surgical History H/O total vaginal hysterectomy (~10/25/24) TVH with bilateral salpingectomy for AUB, fibroids. Performed by [facility] at [facility]. Benign pathology. History of hysteroscopy (~08/16/24) Hysteroscopy D&C with Ash for Postmenopausal bleeding. Negative pathology H/O oral surgery wisdom teeth extraction H/O removal of cyst H/O dilation and curettage H/O breast augmentation Status post creation of urethral sling by suprapubic approach Hx of tonsillectomy H/O hand surgery Family History Father Hypertension Heart disease Mother Diabetes Stroke Grandmother Thyroid disease maternal Other Anxiety Denies family history of Colon cancer Ovarian cancer Prostate cancer Hypercholesteremia Breast cancer Uterine cancer Social History Smoking and tobacco/nicotine status: current every day tobacco/nicotine user Physical Exam Const: COMMON NORMALS: no acute distress, average body habitus, patient oriented x3, no limitations, healthy appearing, alert and well nourished HENMT: COMMON NORMALS: normocephalic, atraumatic, hearing grossly normal bilaterally, external ears normal, Normal external nose present, moist oral mucous membranes and oropharynx normal HEAD & SCALP: normocephalic and atraumatic NOSE: Normal external nose present EXTERNAL EAR: Yes external ears normal Eye: COMMON NORMALS: Equal, round and reactive pupils present, EOMs intact bilaterally, conjunctivae normal and no scleral icterus CONJUNCTIVA: Yes conjunctivae normal PUPIL: Yes Equal, round and reactive pupils present Neck/C-Spine: COMMON NORMALS: full ROM, no lymphadenopathy, supple, no meningeal signs, no JVD and Thyroid normal THYROID: Thyroid normal Chest: COMMONS NORMALS: normal inspection of the chest and normal palpation of entire chest wall Resp: COMMON NORMALS: normal respiratory effort, No retractions, No use of accessory muscles and clear to auscultation bilaterally AUSCULTATION: clear to auscultation bilaterally Cardio: COMMON NORMALS: no JVD, regular rate, regular rhythm, S1 normal heart sound present, S2 normal heart sound present, No gallops present (Cardio), No clicks present (Cardio), No murmurs present (Cardio) and No rub (Cardio) RATE: regular rate RHYTHM: regular rhythm HEART SOUNDS: S1 normal heart sound present and S2 normal heart sound present GI: COMMON NORMALS: Normal to inspection, nondistended, normoactive bowel sounds present, Soft to palpation, non-tender, No hepatosplenomegaly present and no masses PALPATION: Yes Soft to palpation and Yes No hepatosplenomegaly present Neuro: COMMON NORMALS: patient oriented x3 SENSORIUM/ORIENTATION: Yes alert MENINGEAL SIGNS: Yes no meningeal signs Course Vital Signs: Vital signs: Vital Signs Temperature 98.3 F 01/03/25 02:14 Pulse Rate 76 01/03/25 03:33 Respiratory Rate 15 01/03/25 03:33 Blood Pressure 147/77 01/03/25 02:14 Pulse Oximetry 98 01/03/25 03:33 Oxygen Delivery Me thod Room Air 01/03/25 02:14 MDM - Chest Pain Medical Decision Making Lab work was obtained which included D-dimer which was slightly elevated. CTA was obtained which was negative for thromboembolus or acute cardiopulmonary process. Patient be discharged back home to follow-up with her PCP for further evaluation testing. Medical Records I reviewed the patient's medical records. Lab Data I reviewed the patient's lab results. 01/03/25 02:30 01/03/25 02:30 Radiology Impressions Chest X-Ray 01/03/25 02:19 IMPRESSION: No visualized acute cardiopulmonary process. Chest CTA 01/03/25 02:51 IMPRESSION: No visualized pulmonary thromboembolus or acute cardiopulmonary process. Laboratory Results WBC 9.78 10^3/uL (3.29-11.43) 01/03/25 02:30 RBC 4.08 10^6/uL (3.85-5.65) 01/03/25 02:30 Hgb 12.50 g/dL (11.27-16.99) 01/03/25 02:30 Hct 37.8 % (36-47) 01/03/25 02:30 MCV 92.6 fl (85-98) 01/03/25 02:30 MCH 30.6 pg (27-33) 01/03/25 02:30 MCHC 33.1 g/dL (30-55) 01/03/25 02:30 RDW 12.3 % (12.1-15.1) 01/03/25 02:30 Plt Count 385 10^3/cmm (157-399) 01/03/25 02:30 MPV 9.7 fL (7.4-10.4) 01/03/25 02:30 Neut % (Auto) 55.2 % 01/03/25 02:30 Lymph % (Auto) 36.5 % 01/03/25 02:30 Grayson % (Auto) 7.7 % 01/03/25 02:30 Eos % (Auto) 0.0 % 01/03/25 02:30 Baso % (Auto) 0.4 % 01/03/25 02:30 Neut # (Auto) 5.40 10^3/uL (1.8-7.7) 01/03/25 02:30 Lymph # (Auto) 3.6 10^3/uL (0.8-4.8) 01/03/25 02:30 Grayson # (Auto) 0.8 10^3/uL (0.2-0.9) 01/03/25 02:30 Eos # (Auto) 0.0 10^3/uL (0.0-0.8) 01/03/25 02:30 Baso # (Auto) 0.0 10^3/uL (0.0-0.1) 01/03/25 02:30 Nucleated RBC % (auto) 0 % 01/03/25 02:30 Nucleated RBCs # 0.0 /100WBC 01/03/25 02:30 D-Dimer 1.24 ug/mLFEU (0-0.59) H 01/03/25 02:30 Sodium 139 mmol/L (136-145) 01/03/25 02:30 Potassium 3.9 mmol/L (3.5-5.1) 01/03/25 02:30 Chloride 104 mmol/L (98-107) 01/03/25 02:30 Carbon Dioxide 24 mmol/L (22-29) 01/03/25 02:30 Anion Gap 14.9 (5-19) 01/03/25 02:30 BUN 21 mg/dL (6-20) H 01/03/25 02:30 Creatinine 0.7 mg/dL (0.5-0.9) 01/03/25 02:30 GFR Calculation 87.9 mL/min (90-130) L 01/03/25 02:30 Glucose 117 mg/dL (65-115) H 01/03/25 02:30 Calculated Osmolality 292 mOsm/kg (285-295) 01/03/25 02:30 Calcium 9.1 mg/dL (8.5-10.5) 01/03/25 02:30 Total Bilirubin 0.2 mg/dL (0.15-1.2) 01/03/25 02:30 AST 13 U/L (0-32) 01/03/25 02:30 ALT 15 U/L (0-33) 01/03/25 02:30 Alkaline Phosphatase 69 U/L (35-105) 01/03/25 02:30 Troponin T Baseline < 6 ng/L (0-10) 01/03/25 02:30 Troponin T 120 Minute 6.00 ng/L (0-10) 01/03/25 04:10 Delta Troponin T 0.98448 ABS# (0-10) 01/03/25 04:10 C-Reactive Protein 5.1 mg/L (0.0-4.9) H 01/03/25 02:30 Total Protein 6.5 g/dL (6.6-8.7) L 01/03/25 02:30 Albumin 4.1 g/dL (3.5-5.2) 01/03/25 02:30 Globulin 2.4 g/dL (1.3-4.6) 01/03/25 02:30 All radiology interpretation(s) finalized by discharge Discharge Plan Discharge Patient Disposition: Home Clinical Impression: Pleurisy Chest pain Qualifiers: Chest pain type: unspecified Qualified Code(s): R07.9 - Chest pain, unspecified Condition: Stable Prescriptions: No Action pantoprazole [Protonix] 40 mg tablet,delayed release (DR/EC) 40 mg PO BID methylphenidate HCl [Ritalin] 20 mg tablet 20 mg PO TID [id number] [Fioricet] 50-300-40 mg capsule 1 cap PO Q8H PRN (Reason: headaches) oxybutynin chloride 10 mg tablet extended release 24hr 10 mg PO DAILY Qty: 90 3RF Vraylar 3 mg capsule 3 mg PO DAILY ferrous sulfate 325 mg (65 mg iron) tablet 325 mg PO DAILY cholecalciferol (vitamin D3) 50 mcg (2,000 unit) capsule 50 mcg PO DAILY prednisone 20 mg tablet 40 mg PO DAILY 5 Days Qty: 10 0RF amoxicillin-pot clavulanate 875-125 mg tablet 1 tab PO BID 10 Days Qty: 20 0RF estradiol 1 mg tablet 1 mg PO DAILY Qty: 90 3RF Rx Instructions: 1 mg; lamotrigine 200 mg tablet 200 mg PO DAILY levothyroxine 75 mcg tablet 75 mcg PO DAILY Rx Instructions: TAKE 1 TABLET BY MOUTH DAILY fluoxetine 40 mg Capsule 40 mg PO DAILY ibuprofen 800 mg tablet 800 mg PO TID PRN (Reason: pain) Qty: 60 0RF acetaminophen 325 mg capsule 325 mg PO Q4H PRN (Reason: fever or pain) Qty: 60 0RF Discharge Orders: Discharge ED (Routine); Ordered 01/03/25 Ordered By: Jackson Gonzalez Referrals: Alma Banda DO [Primary Care Provider] - 1 week Patient Instructions: Pleurisy (ED), Chest Pain (DC) Activity Restrictions/Additional Instructions: Thank you for choosing [facility] for your healthcare needs today. Please realize that you were seen in the emergency department and that we are providing you with an emergency medical screening exam and this may not be a complete and all exclusive of all testing and/or medical workup we may need to determine your element or severity of your illness. It is very important that you follow-up as instructed with your primary care provider or specialist for the additional evaluation and to discuss your medical treatment plan. You may return to the emergency department should you have concerns or if your condition changes or worsens in any way. Print Language: Montserratian Coding Level of Care Code ED Final Touch Up Painter for Yanick Gupta
[2025-01-03 02:35] LABS: Basophils % 0.4 %; Hematocrit 37.8 % (36-47); Lymphocytes # 3.6 10^3/uL (0.8-4.8); Lymphocytes % 36.5 %; Mean Corpuscular HGB Conc 33.1 g/dL (30-55); Mean Corpuscular Hemoglobin 30.6 pg (27-33); Mean Corpuscular Volume 92.6 fl (85-98); Mean Platelet Volume 9.7 fL (7.4-10.4); Monocytes # 0.8 10^3/uL (0.2-0.9); Monocytes % 7.7 %; Neutrophils % 55.2 %; Nucleated Red Blood Cells % 0 %; Platelet Count 385 10^3/cmm (157-399); Red Blood Count 4.08 10^6/uL (3.85-5.65); Red Cell Distribution Width 12.3 % (12.1-15.1); White Blood Count 9.78 10^3/uL (3.29-11.43)
[2025-01-03 02:47] LABS: D Dimer 1.24 ug/mLFEU (0-0.59)
[2025-01-03 02:51] LABS: Troponin(5th) Baseline < 6 ng/L (0-10)
--- NOTE | 2025-01-03 02:51 | CTR_ITS ---
PROCEDURE INFORMATION: Exam: CTA Chest With Contrast Exam date and time: 01/03/2025 3:03 AM Age: 54 years old Clinical indication: Chest pressure and chest wall pain; Additional info: Left-sided pleuritic type chest pain, elevated d-dimer TECHNIQUE: Imaging protocol: Computed tomographic angiography of the chest with contrast. Exam focused on the arteries. 3D rendering (Not supervised by radiologist): MIP and/or 3D reconstructed images were created by the technologist. Radiation optimization: All CT scans at this facility use at least one of these dose optimization techniques: automated exposure control; mA and/or kV adjustment per patient size (includes targeted exams where dose is matched to clinical indication); or iterative reconstruction. Contrast material: OMNI 350; Contrast volume: 100 ml; Contrast route: INTRAVENOUS (IV); COMPARISON: CR (CHEST, ) 01/03/2025 2:37 AM RADIATION DOSE METRICS: Total DLP (mGy-cm): 296.4 FINDINGS: Pulmonary arteries: No visualized pulmonary thromboembolus. Good contrast bolus timing. Aorta: Unremarkable. No aortic aneurysm. No aortic dissection. Lungs: Mild lower lung atelectasis/scarring. Small number of scattered paraseptal and centrilobular pneumatoceles, largest within the right middle lobe measuring 13 mm. No acute infiltrate or consolidation. Pleural spaces: Unremarkable. No pneumothorax. No pleural effusion. Heart: Heart normal in size. No calcified coronary artery atherosclerosis. No pericardial effusion. Lymph nodes: No mediastinal or hilar adenopathy. No axillary adenopathy. Bones/joints: Mild thoracic spondylosis. Soft tissues: Bilateral breast implants with areas of peripheral calcification. CT/CT angio chest PE protcl [id number] IMPRESSION: No visualized pulmonary thromboembolus or acute cardiopulmonary process.
[2025-01-03 02:55] LABS: Alanine Aminotransferase 15 U/L (0-33); Albumin Level 4.1 g/dL (3.5-5.2); Alkaline Phosphatase 69 U/L (35-105); Anion Gap 14.9 (5-19); Aspartate Amino Transferase 13 U/L (0-32); Blood Urea Nitrogen 21 mg/dL (6-20); C Reactive Protein 5.1 mg/L (0.0-4.9); Calcium 9.1 mg/dL (8.5-10.5); Carbon Dioxide 24 mmol/L (22-29); Chloride 104 mmol/L (98-107); Creatinine Clr Calc Pharmacy 88.4557; Globulin 2.4 g/dL (1.3-4.6); Glomerular Filtration Rate 87.9 mL/min (90-130); Glucose 117 mg/dL (65-115); Osmolality Calculated 292 mOsm/kg (285-295); Potassium 3.9 mmol/L (3.5-5.1); Sodium 139 mmol/L (136-145); Total Bilirubin 0.2 mg/dL (0.15-1.2); Total Protein 6.5 g/dL (6.6-8.7)
[2025-01-03] MEDS: iohexol 350 mg/mL 500 mL Btl (per mL) IV (03:15)
--- NOTE | 2025-01-03 04:19 | ECG_ITS ---
[facility] Test Date: 2025-01-03 Pat Name: Britta Rothman Department: Room: Gender: Female Process Improvement Engineer: : 1970 Requested By: Jackson Gonzalez Order Number: [id number] Reading MD: Measurements Intervals Dunbar Rate: 75 P: 62 PA: 160 QRS: 32 QRSD: 121 T: 83 QT: 426 QTc: 476 Interpretive Statements SINUS RHYTHM LEFT BUNDLE BRANCH BLOCK [120+ ms QRS DURATION, 80+ ms Q/S IN V1/V2, 85+ ms R IN I/aVL/V5/V6] [email or web address] [id number]
[2025-01-03 04:43] LABS: Troponin 5 2HR Delta 0.00001 ABS# (0-10)
== END 2025-01-03 05:22 | disposition home or self-care (01) ==
PROVIDERS: Emergency Provider Emergency Medicine; PCP Family Medicine
DX: R07.9 Chest pain, unspecified (principal); R09.1 Pleurisy; Z72.0 Tobacco use
CPT/HCPCS: 36415; 71045; 71275; 80053; 84484; 85025; 85378; 86140; 93005; 99285

== ENCOUNTER → 2025-02-28 13:22 | Outpatient (BNVA) | payer MEDICAID, SELFPAY | PROVIDERS: PCP Family Medicine; Visit Provider Orthopaedic Surgery | DX: S66.312A Strain of extensor muscle, fascia and tendon of right middle finger at wrist and hand level, initial encounter (principal); X58.XXXA Exposure to other specified factors, initial encounter | CPT/HCPCS: 99204 ==

== ENCOUNTER → 2025-03-10 11:33 | Outpatient (BNVA) | payer MEDICAID, SELFPAY | PROVIDERS: PCP Family Medicine; Visit Provider Orthopaedic Surgery | DX: M25.551 Pain in right hip (principal); M62.89 Other specified disorders of muscle; M71.551 Other bursitis, not elsewhere classified, right hip | CPT/HCPCS: 73502; 99214 ==

== ENCOUNTER 2025-04-12 14:46 | Outpatient (CLI) | payer MEDICAID, SELFPAY ==
[2025-04-12 15:30] LABS: Hematocrit 41.1 % (36-47); Hemoglobin 13.90 g/dL (11.27-16.99); Mean Corpuscular HGB Conc 33.8 g/dL (30-55); Mean Corpuscular Hemoglobin 30.2 pg (27-33); Mean Corpuscular Volume 89.2 fl (85-98); Nucleated Red Blood Cells % 0 %; Platelet Count 423 10^3/cmm (157-399); Red Blood Count 4.61 10^6/uL (3.85-5.65); White Blood Count 6.66 10^3/uL (3.29-11.43)
[2025-04-12 15:51] LABS: Alanine Aminotransferase 16 U/L (0-33); Albumin Level 4.0 g/dL (3.5-5.2); Alkaline Phosphatase 70 U/L (35-105); Anion Gap 17.8 (5-19); Aspartate Amino Transferase 19 U/L (0-32); Blood Urea Nitrogen 16 mg/dL (6-20); Calcium 8.6 mg/dL (8.5-10.5); Carbon Dioxide 24 mmol/L (22-29); Chloride 98 mmol/L (98-107); Globulin 3.1 g/dL (1.3-4.6); Glucose 89 mg/dL (65-115); Osmolality Calculated 281 mOsm/kg (285-295); Potassium 4.8 mmol/L (3.5-5.1); Sodium 135 mmol/L (136-145); Total Protein 7.1 g/dL (6.6-8.7)
[2025-04-12 22:53] LABS: Free T4 Free Thyroxine 1.55 ng/dL (0.82-1.77); Thyroid Stimulating Hormone 1.75 uIU/mL (0.27-4.20)
== END 2025-04-12 14:47 | disposition home or self-care (01) ==
LOC: LAB 14:47
PROVIDERS: PCP Family Medicine; Visit Provider Family Medicine
DX: Z01.89 Encounter for other specified special examinations (principal)
CPT/HCPCS: 36415; 80053; 84439; 84443; 84481; 85025; 86038; 86140

== ENCOUNTER → 2025-04-19 13:37 | Outpatient (BNVA) | payer MEDICAID, SELFPAY | PROVIDERS: PCP Family Medicine; Visit Provider Nurse Practitioner | DX: R30.0 Dysuria (principal); R35.0 Frequency of micturition | CPT/HCPCS: 81000; 87086 ==

== ENCOUNTER → 2025-06-06 11:30 | Outpatient (BNVA) | payer MEDICAID, SELFPAY | PROVIDERS: PCP Family Medicine; Visit Provider Internal Medicine | DX: E03.9 Hypothyroidism, unspecified (principal); R79.89 Other specified abnormal findings of blood chemistry | CPT/HCPCS: 36415; 84439; 84443; 84480 ==

== ENCOUNTER 2025-07-04 14:29 | Outpatient (CLI) | payer MEDICAID, SELFPAY ==
[2025-07-04 16:39] LABS: Free T4 Free Thyroxine 1.36 ng/dL (0.82-1.77); Thyroid Stimulating Hormone 0.38 uIU/mL (0.27-4.20)
== END 2025-07-04 14:30 | disposition home or self-care (01) ==
LOC: LAB 14:30
PROVIDERS: PCP Family Medicine; Visit Provider Internal Medicine
DX: E03.9 Hypothyroidism, unspecified (principal); R79.89 Other specified abnormal findings of blood chemistry
CPT/HCPCS: 36415; 84439; 84443; 84480

== ENCOUNTER 2025-07-14 16:47 | Outpatient (CLI) | payer MEDICAID, SELFPAY ==
--- NOTE | 2025-07-14 16:51 | USR_ITS ---
PROCEDURE INFORMATION: Exam: US Soft Tissue Head and Neck, Thyroid Exam date and time: 07/14/2025 4:55 PM Age: 54 years old Clinical indication: Condition or disease; Thyroid disorder; Other: Hypothyroidism TECHNIQUE: Imaging protocol: Real-time ultrasound scan of the neck with image documentation. Exam focused on the thyroid. COMPARISON: CT facial bones w con [id number] 01/11/2024 9:54 PM FINDINGS: The right lobe measures 2.9 x 0.8 x 1.1 cm. Left lobe measures 1.9 x 0.8 x 0.8 cm. Isthmus measures about 1 mm in thickness. No nodules or other abnormal findings. US/US thyroid [id number] IMPRESSION: Hypoplastic thyroid tissue. No masses or other abnormal findings.
[2025-07-14 17:48] LABS: Total Volume Urine 1100 ml
[2025-07-14 18:05] LABS: Creatinine 24 Hour Urine 891.0 mg/dL (601-1689)
== END 2025-07-14 16:48 | disposition home or self-care (01) ==
PROVIDERS: Internal Medicine; PCP Family Medicine; Visit Provider Nurse Practitioner Family
DX: E03.4 Atrophy of thyroid (acquired) (principal); E05.90 Thyrotoxicosis, unspecified without thyrotoxic crisis or storm; R00.2 Palpitations; E03.8 Other specified hypothyroidism
CPT/HCPCS: 76536; 82530; 82570

== ENCOUNTER → 2025-07-20 17:26 | Outpatient (BNVA) | payer MEDICAID, SELFPAY | PROVIDERS: PCP Family Medicine; Visit Provider Emergency Medicine | DX: J02.9 Acute pharyngitis, unspecified (principal) | CPT/HCPCS: 87071; 87880 ==

== ENCOUNTER 2025-08-16 11:13 | Outpatient (CLI) | payer MEDICAID, SELFPAY ==
[2025-08-16 12:27] LABS: Free T4 Free Thyroxine 0.94 ng/dL (0.82-1.77); Thyroid Stimulating Hormone 1.22 uIU/mL (0.27-4.20)
== END 2025-08-16 11:14 | disposition home or self-care (01) ==
LOC: LAB 11:14
PROVIDERS: PCP Family Medicine; Visit Provider Family Medicine
DX: E03.4 Atrophy of thyroid (acquired) (principal)
CPT/HCPCS: 36415; 84439; 84443; 84481